=== PATIENT | female | born 1970 | race Caucasian/White ===

== ENCOUNTER 2020-05-03 22:42 | Inpatient (IN) | payer OTHER, SELFPAY ==
--- NOTE | ~2020-05-03 | XR_ITS ---
EXAMINATION: XR chest 1V portable DATE: 05/03/2020 23:39 INDICATION: Shortness of breath. COVID-19 positive. TECHNIQUE: A single frontal view of the chest was obtained. COMPARISON: None. FINDINGS: There are patchy airspace opacities in the mid and lower lung zones. No pleural effusion or pneumothorax. The heart size is normal. IMPRESSION: 1. Patchy airspace opacities in the mid and lower lung zones, consistent with pneumonia. Reviewed, dictated and finalized at location A. OGENATION OPERATOR IMPRESSION: 1. Patchy airspace opacities in the mid and lower lung zones, consistent with p neumonia.
--- NOTE | 2020-05-03 22:51 | ED.SOB ---
HPI - SOB/Dyspnea General Chief Complaint: Shortness of Breath/Dyspnea Stated Complaint: covid + / difficulty breathing/fever Time Seen by Provider: 05/03/20 22:51 Source: patient Mode of arrival: ambulatory Limitations: no limitations History of Present Illness HPI Narrative: Patient is a 49-year-old female who presents for evaluation of recurrent fever, cough and shortness of breath. Patient with progressively worsening shortness of breath, cough since diagnosed with Covid on April 29. Patient with initial fever on April 25, tested for Covid on April 26, with positive test result called to her by the public health department on April 29. Patient reports rhinorrhea, congestion, dry cough, and worsening shortness of breath. Patient states she feels she is unable to take a deep breath. Her breathing rate became very fast this evening thus prompting her to come to the emergency department to seek care. She reports recurrent fever despite scheduled Tylenol and ibuprofen, as well as myalgias and headache. She denies any current chest pain. She states that she believes she contracted Covid from her boyfriend who may have been an asymptomatic carrier. Patient follows with Dr. Glasgow who had called her in azithromycin, patient has taken 2 doses of that without any improvement in her symptoms. Related Data Home Medications Medication Instructions Recorded Confirmed No Home Medications 05/03/20 05/03/20 Allergies Allergy/AdvReac Type Severity Reaction Status Date / Time codeine Allergy Intermediate NAUSEA Verified 05/03/20 23:14 Penicillins Allergy Intermediate RASH Verified 05/03/20 23:14 Review of Systems Review of Systems: Narrative: CONSTITUTIONAL: Reports fever and chills EYES: Denies visual changes, redness, or discharge. ENT: Reports rhinorrhea and congestion CARDIOVASCULAR: Denies chest pain, palpitations, or edema. RESPIRATORY: Reports dry cough and shortness of breath GASTROINTESTINAL: Denies abdominal pain, nausea, vomiting, or diarrhea. GENITOURINARY: Denies dysuria or hematuria. SKIN: Denies rash or itching. MUSCULOSKELETAL: Reports myalgias NEUROLOGIC: Reports headache PSYCHIATRIC: Denies anxiety or depression. [facility] Past Medical History Medical History Abnormal uterine bleeding Anemia Fibroids Skin cancer Surgical History Surgical History H/O thyroidectomy Hx of cholecystectomy Social History Social History (Updated 05/03/20 @ 23:22 by Jeanna Soto MD) Smoking status: Never smoker Substance use: never Living arrangements: with family Gender identity (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 by the patient): Female Exam Narrative: Exam Narrative: GENERAL: Awake, alert, conversant HEAD: Normocephalic, atraumatic. EYES: PERRLA and EOMI. ENT: Nares clear, no rhinorrhea or epistaxis. Mucous membranes moist. NECK: Supple. CHEST: Tachypneic, increased work of breathing, use of abdominal accessory muscles to breathe HEART: Tachycardic rate, sinus rhythm ABDOMEN:Non distended, non tender EXTREMITIES: Normal range of motion. No edema. SKIN: Warm, dry, no rash. NEURO:No focal deficits. Alert and oriented x3 Course Vital Signs Vital signs: Vital Signs Temperature 38.3 C H 05/03/20 22:52 Pulse Rate 101 H 05/03/20 22:52 Respiratory Rate 33 H 05/03/20 22:52 Blood Pressure 113/74 05/03/20 22:52 Pulse Oximetry 95 05/03/20 22:52 Temperature 38.3 C H 05/03/20 22:52 Pulse Rate 101 H 05/03/20 22:52 Respiratory Rate 33 H 05/03/20 22:52 Blood Pressure 113/74 05/03/20 22:52 Pulse Oximetry 95 05/03/20 22:52 MDM - SOB/Dyspnea MDM Narrative Medical decision making narrative: Patient presented for evaluation of shortness of breath in the setting of a recent positive Covid test. The time of assessment, patient is tachycardic, tachypneic and febrile. Oxygen saturations are 9
[2020-05-03 22:52] VITALS: BP 113/74; PULSE 101; RESP 33; TEMP 38.3; O2SAT 95
--- NOTE | 2020-05-03 23:00 | ECG_ITS ---
Measurements Intervals Aldie Rate: 99 P: 46 GA: 139 QRS: 40 QRSD: 96 T: 26 QT: 344 QTc: 442 Interpretive Statements SINUS RHYTHM LOW QRS VOLTAGE IN PRECORDIAL LEADS BORDERLINE ST-T WAVE ABNORMALITY- ANT/INF LEADS BASELINE WANDER- V1-V4 BORDERLINE ECG Electronically Signed On 05-04-2020 13:15:07 DIRECTOR PUBLIC POLICY by [place] D.O.
[2020-05-03] MEDS: SODIUM CHLORIDE 0.9% IV 500 ML 999 ML IV CONT (23:10)
[2020-05-03 23:16] LABS: Basophils Percent Auto 0.4 % (0.2-1.2); Hematocrit 33.1 % (37.0-47.0); Hemoglobin 11.7 g/dL (12.0-15.0); Immature Granulocyte Absolute 0.01 K/mm3 (0.00-0.031); Immature Granulocyte Percent A 0.4 % (0-0.5); Lymphocytes Absolute Auto 0.66 K/mm3 (0.9-3.2); Lymphocytes Percent Auto 25.5 % (18.3-44.2); Mean Corpuscular HGB Conc 35.3 g/dl (32-36); Mean Corpuscular Hemoglobin 29.1 pg (26-34); Mean Corpuscular Volume 82.3 fl (80-100); Mean Platelet Volume 9.7 fl (7.4-10.4); Monocytes Absolute Auto 0.2 K/mm3 (0.1-0.6); Monocytes Percent Auto 6.2 % (2.6-8.5); Neutrophils Absolute Auto 1.8 K/mm3 (1.3-6.7); Neutrophils Percent Auto 67.5 % (45.5-73.1); Platelet Count Result 193 k/mm3 (150-375); Red Blood Count 4.02 M/mm3 (4.2-5.4); Red Cell Distribution Width 13.2 % (11.5-14.5); White Blood Count 2.6 K/mm3 (4.5-10.0)
[2020-05-03 23:17] LABS: Alveolar/Arterial O2 Gradient 52.4 mmHg; Base Excess ABG 3.7 mEq/l (+/-2.0); Carboxyhemoglobin 0.6 % THb (0-2.0); Fractional Inspired Oxygen 21 %; Methemoglobin ABG 0.1 %THb (0-1.5); Oxygen Content ABG 15.8 %vol (16.0-22.0); Oxygen Saturation ABG 93.4 % (95.0-100.0); Oxyhemoglobin 91.2 % THb (90.0-100.0); PO2 FiO2 Ratio Arterial Blood 2.81 %; Reduced Hemoglobin 8.1 %THb (0-5.0); Total Hemoglobin 12.3 g/dL (12.0-18.0)
[2020-05-03 23:22] LABS: pH ABG 7.528 (7.350-7.450)
[2020-05-03 23:23] LABS: Device ROOM AIR; Modified Allen's Test Pass; Site Drawn RIGHT RADIAL
[2020-05-03 23:27] LABS: Partial Thromboplastin Time 40.5 SECONDS (22.3-36.8)
[2020-05-03 23:30] LABS: Lactic Acid Reflex 1.1 mmol/L (0.7-2.1)
[2020-05-03 23:30] LABS: Lactate Dehydrogenase 992 U/L (313-618)
[2020-05-03 23:32] LABS: Alanine Aminotransferase 19 U/L (4-35); Albumin Level 3.4 g/dL (3.5-5.1); Alkaline Phosphatase 79 U/L (38-126); Anion Gap 7 mmol/L (8-16); Aspartate Amino Transferase 34 U/L (14-36); Bilirubin,Total 0.4 mg/dL (0.2-1.3); Blood Urea Nitrogen 16 mg/dL (7-17); Calcium 8.3 mg/dL (8.4-10.2); Carbon Dioxide 29 mmol/L (22-30); Chloride 100 mmol/L (98-107); Estimated CRCL calculation 107 ml/min; Estimated Glomerular Filt Rate > 60; Glucose 119 mg/dL (65-105); Potassium 3.4 mmol/L (3.4-5.0); Sodium 136 mmol/L (137-145)
[2020-05-03 23:41] LABS: Troponin I < 0.012 ng/mL (0.000-0.034)
--- NOTE | 2020-05-03 23:53 | PM.IMHP ---
H&P: HPI History of Present Illness Date/Time: 05/03/20 23:53 Chief complaint: COVID 19, hypoxic respiratory failure Narrative: Mela Gomez is a 49 year old female with no past medical history with diagnosis COVID-19 presents to the ED with complaints of dyspnea. She thinks her exposure was her boyfriend who was asymptomatic. She had fever on 04/25/2020, COVID test on 04/26/2020 and was told that she was positive. She complains of fevers, cough, body aches, chills. She tried to hold off at home and came to the hospital today for progressive dyspnea. she has cough with any deep breath. She had taken 2 doses of azithromycin prescribed by PCP Dr. Glasgow. In the ED: WBC 2.6, ABG was alkalotic and PO2 59 from tachypnea and put on 2 L of oxygen by nasal cannula to improve her respiration rate, inflammatory markers ferritin, LDH, C-reactive protein elevated. Chest x-ray bilateral opacities consistent with COVID-19. patient was given IV Decadron Patient made for observation COVID-19. Review of Systems Review of Systems: Narrative: Constitutional: Endorses fever, body aches, chills. ENT/Mouth: No Hearing Changes, No Ear Pain, No Nasal Congestion, No Sinus Pain, No Hoarseness, No sore throat, No Rhinorrhea, No Swallowing Difficulty Eyes: No Eye Pain, No Redness, No Vision Changes Cardiovascular: No Chest Pain, No Palpitations, No Dyspnea on Exertion, No Orthopnea, No Claudication, No Edema Respiratory: complains of dry cough, shortness of breath. Denies wheezing. Gastrointestinal: No Nausea, No Vomiting, No Diarrhea, No Constipation, No Abdominal Pain, No Heartburn, No Hematochezia, No Melena Genitourinary: No Dysuria, No Urinary Frequency, No Hematuria, No Urinary Incontinence, No Urgency Musculoskeletal: No Arthralgias, No Joint Swelling, No Joint Stiffness, No Back Pain Skin: No Skin Lesions, No Pruritis, No Hair Changes Neuro: No Weakness, No Numbness, No Paresthesias, No Loss of Consciousness, No Syncope, No Dizziness, No Headache Psych: No Anxiety/Panic, No Depression, No Insomnia Heme: No Bruising, No Bleeding Lymph: No Adenopathy Endocrine: No Polyuria, No Polydipsia, No Temperature Intolerance [facility] Past Medical History Medical History Abnormal uterine bleeding Anemia Fibroids Skin cancer Surgical History Surgical History H/O thyroidectomy Hx of cholecystectomy Family History Family History Father COPD (chronic obstructive pulmonary disease) Mother Heart attack Social History Social History (Updated 05/04/20 @ 01:20 by Areli Browne DO) Smoking status: Never smoker Alcohol intake: never Substance use: never Living arrangements: with family Occupation/Education: occupation 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 (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 by the patient): Female Spiritual care concerns: No Meds Home Medications and Allergies Home Medications Medication Instructions Recorded Confirmed Type No Home Medications 05/03/20 05/03/20 History Allergies Allergy/AdvReac Type Severity Reaction Status Date / Time codeine Allergy Intermediate NAUSEA Verified 05/03/20 23:14 Penicillins Allergy Intermediate RASH Verified 05/03/20 23:14 Vital Signs Vital Signs - 24 hr 05/03/20 22:52 Temperature 38.3 C H Pulse Rate 101 H Respiratory Rate 33 H Blood Pressure 113/74 Pulse Oximetry 95 Exam Narrative: Exam Narrative: - GENERAL: pleasant woman in no acute distress breathing comfortably 2 L. - EYES: EOMI. Anicteric. - HENT: Moist mucous membranes. No scleral icterus. - LUNGS: clear in apices, diminished lung sounds at lung bases - CARDIOVASCULAR: Regular rate and rhythm. No murmur. No JVD. - ABDOMEN: Soft, non-tender and non-distended. No palpable
[2020-05-04] VITALS (16 sets, daily range): BP systolic 97–126; BP diastolic 60–82; PULSE 75–113; RESP 18–22; TEMP 36.4–39.3; O2SAT 95–100; BMI 28.6
[2020-05-04 00:13] LABS: CRP 15.1 mg/dL (<1.0)
--- NOTE | 2020-05-04 00:44 | ADMGEN ---
This patient, Mela Gomez, was admitted to 3 [facility] Surg Room 319-01. Patient/family oriented to hospital policies and general routines including ID bracelet, bed and alarms, visiting hours, pain management, procedures, bathroom and other care routines, personal items, smoking policy, room service/diet, and visiting hours. Information on how to activate the Rapid Response Team has been discussed. Patient/Family are encouraged to report perceived risks to care and to ask questions if they do not understand what they are told or what they should do.
[2020-05-04] MEDS: ONDANSETRON INJ 4 MG/2 ML VIAL IV PUSH ×2 (00:57→21:11)
[2020-05-04] MEDS: guaiFENesin/DEXTROMETHORPHAN 10 ML UDC PO ×3 (02:22→21:06)
[2020-05-04] MEDS: ZINC SULFATE 220 MG CAPSULE PO (08:21)
[2020-05-04] MEDS: ENOXAPARIN 40 MG/0.4 ML SYRINGE SUB-Q ×2 (08:21→21:05)
[2020-05-04] MEDS: ASPIRIN 81 MG CHEWABLE TABLET PO (08:21)
[2020-05-04] MEDS: FAMOTIDINE 20 MG TABLET PO ×2 (08:21→21:05)
[2020-05-04] MEDS: DEXAMETHASONE 2 MG TABLET 6 MG PO (08:21)
[2020-05-04] MEDS: CHOLECALCIFEROL 1,000 UNITS TABLET 1000 UNITS PO (08:21)
[2020-05-04] MEDS: ASCORBIC ACID 500 MG TABLET PO (08:21)
[2020-05-04] MEDS: ALBUTEROL SULFATE (*SP) AEROSOL 1 PUFF 2 PUFF INHALATION ×2 (10:16→15:15)
--- NOTE | 2020-05-04 13:46 | PM.IMPN ---
Progress Note: A&P Assessment and Plan (1) COVID-19: Code(s): U07.1 - COVID-19 Status: Acute Assessment and Plan: Patient tested positive for COVID on 04/26, presents with worsening shortness of breath. Symptoms began 04/25, known exposure to COVID + person. Continue dexamethasone (day 2); discussed with patient, will initiate remdesivir today (day 1). Continue supplemental O2 and wean as tolerated to keep O2 saturations > 90%. Continue supportive care with Tylenol for fever, albuterol MDI, Robitussin, incentive spirometer, supplementation of Zinc, vitamins C and D. (2) Respiratory failure with hypoxia: Qualifiers: Chronicity: acute Qualified Code(s): J96.01 - Acute respiratory failure with hypoxia Code(s): J96.91 - Respiratory failure, unspecified with hypoxia Status: Acute Assessment and Plan: Secondary to above. Subjective Date/time seen: 05/04/20 13:00 Interval history: Ms. Gomez is a pleasant 49yo F admitted for acute respiratory failure secondary to COVID-19. Still has significant nonproductive coughing today. She denies chest pain. She has been doing well working with her incentive spirometer and ambulating in the room which she admits makes her feel a bit short of breath. Shortness of breath overall feels about the same as yesterday. She reports her appetite is decreased but she has tolerated some breakfast without nausea or vomiting. Review of Systems Review of Systems: All systems reviewed & are unremarkable except as noted in HPI and below Exam Narrative: Exam Narrative: General: Female resting sitting up in bed in no acute respiratory distress. HEENT: Normocephalic, EOMI, oral mucosa moist. Cardiovascular: Rate and rhythm are regular. Respiratory: Decreased breath sounds YANIQUE. Respirations are even and nonlabored. Tolerating 1L O2 nasal cannula at time of my encounter. Deep breaths elicit dry coughing. Abdomen: Soft, non-tender, non-distended, bowel sounds present. Extremities: Peripheral pulses intact. No edema. Neuro: No focal neurological deficits. Speech is clear. Objective Data Vital Signs Vital Signs: Last Vital Signs Temp 100 F H 05/04/20 16:00 Pulse 113 H 05/04/20 16:00 Resp 20 05/04/20 16:00 BP 117/60 05/04/20 16:00 Pulse Ox 96 05/04/20 16:00 Intake/Output Intake/Output: Intake & Output 05/01/20 05/02/20 05/03/20 05/04/20 23:59 23:59 23:59 23:59 Intake Total 600 340 Output Total 300 Balance 600 40 Meds/Results Medications: Active Medications Generic Name Dose Route Start Last Admin Trade Name Freq PRN Reason Stop Dose Admin Acetaminophen 650 mg 05/03/20 23:49 Acetaminophen 325 Mg Tablet PO Q4H PRN Mild Pain (1-3) or Fever Albuterol 2 puff 05/04/20 08:00 05/04/20 10:16 Albuterol Sulfate (*Sp) Aerosol 1 Puff INHALATION 2 puff QIDRT JOHN Administration Ascorbic Acid 500 mg 05/04/20 09:00 05/04/20 08:21 Ascorbic Acid 500 Mg Tablet PO 500 mg DAILY JOHN Administration Aspirin 81 mg 05/04/20 08:00 05/04/20 08:21 Aspirin 81 Mg Chewable Tablet PO 81 mg DAILY@0800 JOHN Administration Dexamethasone 6 mg 05/04/20 08:00 05/04/20 08:21 Dexamethasone 2 Mg Tablet PO 05/13/20 08:01 6 mg DAILY@0800 JOHN Administration Enoxaparin Sodium 40 mg 05/04/20 09:00 05/04/20 08:21 Enoxaparin 40 Mg/0.4 Ml Syringe SUB-Q 40 mg Q12HR JOHN Administration Famotidine 20 mg 05/04/20 09:00 05/04/20 08:21 Famotidine 20 Mg Tablet PO 20 mg Q12HR JOHN Administration Guaifenesin/Dextromethorphan 10 ml 05/04/20 01:26 05/04/20 08:24 Guaifenesin/Dextromethorphan 10 Ml Udc PO 10 ml Q4H PRN Administration Cough Ondansetron HCl 4 mg 05/03/20 23:49 05/04/20 00:57 Ondansetron Inj 4 Mg/2 Ml Vial IV PUSH 4 mg Q4H PRN Administration Nausea Tabby
[2020-05-04] MEDS: REMDESIVIR 200 MG/NS 250 ML 200 MG/250 ML BAG 250 MG IVPB (15:07)
[2020-05-04] MEDS: ACETAMINOPHEN 325 MG TABLET 650 MG PO ×2 (15:17→21:19)
[2020-05-04] MEDS: ALBUTEROL SULFATE (*SP) INHALER 1 PUFF (20:27)
[2020-05-05] VITALS (19 sets, daily range): BP systolic 91–115; BP diastolic 54–68; PULSE 81–102; RESP 16–20; TEMP 36.4–38.4; O2SAT 93–97
[2020-05-05] MEDS: ACETAMINOPHEN 325 MG TABLET 650 MG PO ×3 (02:54→20:20)
[2020-05-05] MEDS: guaiFENesin/DEXTROMETHORPHAN 10 ML UDC PO ×5 (02:54→21:53)
[2020-05-05] MEDS: IBUPROFEN 600 MG TABLET PO (06:04)
[2020-05-05 06:47] LABS: Hematocrit 31.3 % (37.0-47.0); Hemoglobin 10.7 g/dL (12.0-15.0); Mean Corpuscular HGB Conc 34.2 g/dl (32-36); Mean Corpuscular Hemoglobin 28.8 pg (26-34); Mean Corpuscular Volume 84.1 fl (80-100); Mean Platelet Volume 9.4 fl (7.4-10.4); Platelet Count Result 219 k/mm3 (150-375); Red Blood Count 3.72 M/mm3 (4.2-5.4); Red Cell Distribution Width 13.3 % (11.5-14.5); White Blood Count 4.4 K/mm3 (4.5-10.0)
[2020-05-05 07:13] LABS: Anion Gap 6 mmol/L (8-16); Blood Urea Nitrogen 14 mg/dL (7-17); Calcium 7.8 mg/dL (8.4-10.2); Carbon Dioxide 29 mmol/L (22-30); Chloride 102 mmol/L (98-107); Estimated CRCL calculation 108 ml/min; Estimated Glomerular Filt Rate > 60; Glucose 106 mg/dL (65-105); Potassium 3.4 mmol/L (3.4-5.0); Sodium 137 mmol/L (137-145)
[2020-05-05] MEDS: ALBUTEROL SULFATE (*SP) AEROSOL 1 PUFF 2 PUFF INHALATION ×4 (08:14→20:23)
[2020-05-05 08:41] LABS: Alanine Aminotransferase 18 U/L (4-35)
[2020-05-05] MEDS: ASCORBIC ACID 500 MG TABLET PO (09:27)
[2020-05-05] MEDS: DEXAMETHASONE 2 MG TABLET 6 MG PO (09:27)
[2020-05-05] MEDS: FAMOTIDINE 20 MG TABLET PO ×2 (09:27→20:11)
[2020-05-05] MEDS: CHOLECALCIFEROL 1,000 UNITS TABLET 1000 UNITS PO (09:28)
[2020-05-05] MEDS: ENOXAPARIN 40 MG/0.4 ML SYRINGE SUB-Q ×2 (09:28→20:11)
[2020-05-05] MEDS: ASPIRIN 81 MG CHEWABLE TABLET PO (09:28)
[2020-05-05] MEDS: ZINC SULFATE 220 MG CAPSULE PO (09:28)
[2020-05-05] MEDS: BISACODYL 5 MG TABLET EC PO (13:53)
--- NOTE | 2020-05-05 14:10 | PM.IMPN ---
Progress Note: A&P Assessment and Plan (1) COVID-19: Code(s): U07.1 - COVID-19 Status: Acute Assessment and Plan: Patient tested positive for COVID on 04/26, presents with worsening shortness of breath. Symptoms began 04/25, known exposure to COVID + person. Continue dexamethasone (day 3), remdesivir (day 2). Off oxygen this morning. Continue supportive care with Tylenol for fever, albuterol MDI, Robitussin, incentive spirometer, supplementation of Zinc, vitamins C and D. Continue to monitor; Anticipate possible discharge tomorrow if still off oxygen. (2) Respiratory failure with hypoxia: Qualifiers: Chronicity: acute Qualified Code(s): J96.01 - Acute respiratory failure with hypoxia Code(s): J96.91 - Respiratory failure, unspecified with hypoxia Status: Acute Assessment and Plan: Secondary to above. Subjective Date/time seen: 05/05/20 1245 Interval history: Ms. Gomez is a pleasant 49yo F admitted for acute respiratory failure secondary to COVID-19. Still with a significant cough today. Febrile overnight and this morning. She is very tired today, more so than yesterday. Appetite is poor but she has tolerated a little oral intake without nausea or vomiting. Her taste and smell is returning a little today. Off oxygen since this morning. Review of Systems Review of Systems: All systems reviewed & are unremarkable except as noted in HPI and below Exam Narrative: Exam Narrative: General: Female resting supine in bed in no acute respiratory distress. HEENT: Normocephalic, EOMI, oral mucosa moist. Cardiovascular: Rate and rhythm are regular. Respiratory: Decreased breath sounds YANIQUE. Respirations are even and nonlabored. Tolerating room air at time of my encounter. Deep breaths elicit dry coughing. Abdomen: Soft, non-tender, non-distended, bowel sounds present. Extremities: Peripheral pulses intact. No edema. Negative Romy's sign. Neuro: No focal neurological deficits. Speech is clear. Objective Data Vital Signs Vital Signs: Last Vital Signs Temp 99.0 F 05/05/20 13:07 Pulse 102 H 05/05/20 12:00 Resp 18 05/05/20 12:00 BP 111/62 05/05/20 12:00 Pulse Ox 93 05/05/20 12:00 Intake/Output Intake/Output: Intake & Output 05/02/20 05/03/20 05/04/20 05/05/20 23:59 23:59 23:59 23:59 Intake Total 600 1830 1370 Output Total 1200 Balance 617 409 2225 Meds/Results Medications: Active Medications Generic Name Dose Route Start Last Admin Trade Name Freq PRN Reason Stop Dose Admin Acetaminophen 650 mg 05/03/20 23:49 05/05/20 12:07 Acetaminophen 325 Mg Tablet PO 650 mg Q4H PRN Administration Mild Pain (1-3) or Fever Albuterol 2 puff 05/04/20 08:00 05/05/20 12:57 Albuterol Sulfate (*Sp) Aerosol 1 Puff INHALATION 2 puff QIDRT JOHN Administration Ascorbic Acid 500 mg 05/04/20 09:00 05/05/20 09:27 Ascorbic Acid 500 Mg Tablet PO 500 mg DAILY JOHN Administration Aspirin 81 mg 05/04/20 08:00 05/05/20 09:28 Aspirin 81 Mg Chewable Tablet PO 81 mg DAILY@0800 JOHN Administration Bisacodyl 5 mg 05/05/20 10:41 05/05/20 13:53 Bisacodyl 5 Mg Tablet Ec PO 5 mg QAM PRN Administration Constipation Dexamethasone 6 mg 05/04/20 08:00 05/05/20 09:27 Dexamethasone 2 Mg Tablet PO 05/13/20 08:01 6 mg DAILY@0800 JOHN Administration Enoxaparin Sodium 40 mg 05/04/20 09:00 05/05/20 09:28 Enoxaparin 40 Mg/0.4 Ml Syringe SUB-Q 40 mg Q12HR JOHN Administration Famotidine 20 mg 05/04/20 09:00 05/05/20 09:27 Famotidine 20 Mg Tablet PO 20 mg Q12HR JOHN Administration Guaifenesin/Dextromethorphan 10 ml 05/04/20 01:26 05/05/20 13:53 Guaifenesin/Dextromethorphan 10 Ml Udc PO 10 ml Q4H PRN Administration Cough Remdesivir 100 mg in 250 mls @ 250 mls/hr 05/05/20 15:00 IVPB
[2020-05-05] MEDS: REMDESIVIR 100 MG/NS 250 ML 100 MG/250 ML BAG 250 MG IVPB (14:52)
[2020-05-06] VITALS (7 sets, daily range): BP systolic 99–117; BP diastolic 62–75; PULSE 85–94; RESP 18; TEMP 36.7–38.3; O2SAT 91–97
[2020-05-06] MEDS: ACETAMINOPHEN 325 MG TABLET 650 MG PO (04:16)
[2020-05-06 06:43] LABS: Basophils Percent Auto 0.3 % (0.2-1.2); Hematocrit 32.1 % (37.0-47.0); Immature Granulocyte Absolute 0.04 K/mm3 (0.00-0.031); Immature Granulocyte Percent A 1.1 % (0-0.5); Lymphocytes Absolute Auto 0.98 K/mm3 (0.9-3.2); Lymphocytes Percent Auto 26.8 % (18.3-44.2); Mean Corpuscular HGB Conc 34.3 g/dl (32-36); Mean Corpuscular Hemoglobin 28.9 pg (26-34); Mean Corpuscular Volume 84.3 fl (80-100); Mean Platelet Volume 9.2 fl (7.4-10.4); Monocytes Absolute Auto 0.4 K/mm3 (0.1-0.6); Monocytes Percent Auto 11.8 % (2.6-8.5); Neutrophils Absolute Auto 2.2 K/mm3 (1.3-6.7); Platelet Count Result 243 k/mm3 (150-375); Red Blood Count 3.81 M/mm3 (4.2-5.4); Red Cell Distribution Width 13.4 % (11.5-14.5); White Blood Count 3.7 K/mm3 (4.5-10.0)
[2020-05-06 06:56] LABS: Alanine Aminotransferase 21 U/L (4-35); Albumin Level 3.1 g/dL (3.5-5.1); Alkaline Phosphatase 64 U/L (38-126); Anion Gap 6 mmol/L (8-16); Aspartate Amino Transferase 38 U/L (14-36); Bilirubin,Total 0.4 mg/dL (0.2-1.3); Blood Urea Nitrogen 13 mg/dL (7-17); Calcium 7.8 mg/dL (8.4-10.2); Carbon Dioxide 31 mmol/L (22-30); Chloride 101 mmol/L (98-107); Estimated CRCL calculation 108 ml/min; Estimated Glomerular Filt Rate > 60; Glucose 107 mg/dL (65-105); Lactate Dehydrogenase 1032 U/L (313-618); Magnesium 2.2 mg/dL (1.6-2.3); Potassium 3.8 mmol/L (3.4-5.0); Sodium 138 mmol/L (137-145)
[2020-05-06 07:09] LABS: CRP 13.6 mg/dL (<1.0)
[2020-05-06] MEDS: ALBUTEROL SULFATE (*SP) AEROSOL 1 PUFF 2 PUFF INHALATION ×3 (07:21→16:05)
[2020-05-06 08:05] LABS: Atypical Lymphocytes Present; Hypochromasia 1+ (NORMAL); Microcytosis 1+ (NORMAL); Platelet Estimate Adequate (Adequate)
[2020-05-06] MEDS: guaiFENesin/DEXTROMETHORPHAN 10 ML UDC PO (08:08)
[2020-05-06] MEDS: DEXAMETHASONE 2 MG TABLET 6 MG PO (08:08)
[2020-05-06] MEDS: ZINC SULFATE 220 MG CAPSULE PO (08:09)
[2020-05-06] MEDS: ENOXAPARIN 40 MG/0.4 ML SYRINGE SUB-Q (08:09)
[2020-05-06] MEDS: FAMOTIDINE 20 MG TABLET PO (08:09)
[2020-05-06] MEDS: ASCORBIC ACID 500 MG TABLET PO (08:09)
[2020-05-06] MEDS: ASPIRIN 81 MG CHEWABLE TABLET PO (08:09)
[2020-05-06] MEDS: CHOLECALCIFEROL 1,000 UNITS TABLET 1000 UNITS PO (08:10)
--- NOTE | 2020-05-06 13:24 | PM.DS ---
DS: Admitting Diagnosis Admitting Diagnosis Admitting Diagnosis: COVID 19, hypoxic respiratory failure DS: Discharge Diagnosis Discharge Diagnosis (1) COVID-19: Code(s): U07.1 - COVID-19 Status: Acute Assessment and Plan: Date of Admission 05/03/20 Date of Discharge/DOS 05/06/20 Ms. Gomez is a pleasant 49yo healthy female who tested positive for COVID-19 on 04/26/20 after symptoms of fevers started 04/25/20. She presented to the ED for evaluation of significant shortness of breath and was found to be in acute respiratory failure with hypoxia. Chest XR demonstrated bilateral pneumonia. She was initiated on steroids and antiviral therapy. She was treated with supplemental oxygen and 4 days of dexamethasone and 3 days of remdesivir. Her symptoms improved and she was able to maintain adequate oxygen saturations on room air x24 hrs prior to discharge. She was hemodynamically stable for discharge on 05/06/20 with instructions to monitor her symptoms closely and follow up with PCP for phone visit within 1 week. Patient tested positive for COVID on 04/26, presents with worsening shortness of breath. Symptoms began 04/25, known exposure to COVID + person. Treated with dexamethasone (day 4), remdesivir (day 3). Tolerating room air prior to discharge. Continue supportive care with Tylenol for fever, albuterol MDI, Robitussin, incentive spirometer, supplementation of Zinc, vitamins C and D. (2) Respiratory failure with hypoxia: Qualifiers: Chronicity: acute Qualified Code(s): J96.01 - Acute respiratory failure with hypoxia Code(s): J96.91 - Respiratory failure, unspecified with hypoxia Status: Acute Assessment and Plan: Secondary to above. DS: Summary Time Spent with Patient Time attestation: Total time spent providing and/or coordinating discharge services: 45 minutes Exam Narrative: Exam Narrative: General: Female resting supine in bed in no acute respiratory distress. HEENT: Normocephalic, EOMI, oral mucosa moist. Cardiovascular: Rate and rhythm are regular. Respiratory: Decreased breath sounds YANIQUE. Respirations are even and nonlabored. Tolerating room air at time of my encounter. Deep breaths elicit dry coughing. Abdomen: Soft, non-tender, non-distended, bowel sounds present. Extremities: Peripheral pulses intact. No edema. Negative Romy's sign. Neuro: No focal neurological deficits. Speech is clear. DS: Data Data Completed and Pending Labs on day of discharge: Last Vital Signs Temp 98.2 F 05/06/20 12:00 Pulse 91 05/06/20 12:00 Resp 18 05/06/20 12:00 BP 110/75 05/06/20 12:00 Pulse Ox 93 05/06/20 12:00 ITS Impressions Chest X-Ray 05/03/20 23:41 IMPRESSION: 1. Patchy airspace opacities in the mid and lower lung zones, consistent with pneumonia. Laboratory Tests 05/06/20 06:25 05/06/20 06:25 Discharge Plan Discharge Attending physician on discharge: Moises Hollis Consulting providers: Marlene Ludwig ; [place] ; Greg Mcclain V. Discharging Clinician: Marlene Ludwig Anticipated Discharge Date/Time: 05/06/20 16:00 Patient Disposition: Home, Self-Care Activity: as tolerated Diet: as tolerated Discharge Instructions: Keep your scheduled follow-up virtual appointment with Dr Glasgow for Saturday05/10/20. It is important for you to stay isolated at home. You can leave home after these three things have happened: You have had no fever for at least 72 hours (that is three full days of no fever without the use medicine that reduces fevers) AND other symptoms have improved (for example, when your cough or shortness of breath have improved) AND at least 14 days have passed since your symptoms first appeared Your family members at home will benefit from you also stayin
[2020-05-06] MEDS: REMDESIVIR 100 MG/NS 250 ML 100 MG/250 ML BAG 250 MG IVPB (15:11)
== END 2020-05-06 16:45 | disposition home or self-care (01) | DRG 177 ==
LOC: ANHED 23:45 → ANH3MEDSUR 05-04 00:03
PROVIDERS: Physician Assistant; Admitting Provider Student in an Organized Health Care Education/Training Program; Emergency Provider Emergency Medicine; PCP Internal Medicine; Visit Provider Hospitalist
DX: U07.1 COVID-19 (principal); J96.01 Acute respiratory failure with hypoxia; J12.89 Other viral pneumonia; Z88.0 Allergy status to penicillin; Z88.8 Allergy status to other drugs, medicaments and biological substances
CPT/HCPCS: 36415; 36600; 71045; 80048; 80053; 82375; 82728; 82805; 83050; 83605; 83615; 83735; 84460; 84484; 85025; 85027; 85610; 85730; 86140; 87040; 93005; 94640; 96365; 96372; 96375; 99285; A9270; G0378; J0131; J1100; J1650; J2405; J7040; J8540

== ENCOUNTER 2020-09-06 09:04 | Outpatient (CLI) | payer OTHER, SELFPAY | END 2020-09-06 09:05 | disposition home or self-care (01) | LOC: ANHCOVIDVC 09:04 | PROVIDERS: PCP Internal Medicine | DX: Z23 Encounter for immunization (principal) | CPT/HCPCS: 0001A; 91300 ==

== ENCOUNTER 2020-09-27 09:04 | Outpatient (CLI) | payer OTHER, SELFPAY | END 2020-09-27 09:05 | disposition home or self-care (01) | LOC: ANHCOVIDVC 09:04 | PROVIDERS: PCP Internal Medicine | DX: Z23 Encounter for immunization (principal) | CPT/HCPCS: 0002A; 91300 ==

== ENCOUNTER 2022-07-10 14:45 | Outpatient (CLI) | payer OTHER, SELFPAY ==
--- NOTE | ~2022-07-10 | MM_ITS ---
EXAMINATION: MM screening natacha BI w shirlene HISTORY: Screening mammogram TECHNIQUE: Craniocaudal and mediolateral oblique 3-D tomosynthesis images were obtained and synthetic 2-D images were generated. CAD analysis was submitted and interpreted. COMPARISON: 03/20/2018 bilateral screening mammogram examination BREAST PARENCHYMAL COMPOSITION: The breasts are heterogeneously dense, which may obscure small masses . FINDINGS: There is no evidence of suspicious mass, calcification, or architectural distortion to sugg est malignancy in either breast. There has been no suspicious interval change. IMPRESSION: 1. No mammographic evidence of malignancy. 2. Recommend routine screening mammography in one year. BI-RADS Category 1: Negative Reviewed, dictated and finalized at location A. UTER NUMERICAL CONTROL MACHINIST
== END 2022-07-10 14:46 | disposition home or self-care (01) ==
PROVIDERS: PCP Internal Medicine; Visit Provider Obstetrics & Gynecology
DX: Z12.31 Encounter for screening mammogram for malignant neoplasm of breast (principal)
CPT/HCPCS: 77063; 77067

== ENCOUNTER 2022-10-12 09:49 | Outpatient (CLI) | payer OTHER, SELFPAY ==
--- NOTE | ~2022-10-12 | MR_ITS ---
EXAMINATION: MR breast BI wo/w con INDICATION: Family history of breast cancer TECHNIQUE: Axial VIBRANT pre and dynamic post contrast, Sagittal VIBRANT post contrast, Axial T2 STIR ASSET COMPARISON: None CONTRAST: Multihance, 18 cc BREAST COMPOSITION: Heterogeneous fibroglandular tissue FINDINGS: RIGHT BREAST: There is mild background parenchymal enhancement. No abnormal enhancement is present af ter contrast administration. No pathologically enlarged axillary or internal mammary lymph nodes are identified. A few small cysts of the breast measure up to 6 mm. LEFT BREAST: There is mild background parenchymal enhancement. No abnormal enhancement is present aft er contrast administration. No pathologically enlarged axillary or internal mammary lymph nodes are i dentified. Small cysts of the breast measure up to 6 mm. IMPRESSION: 1. Unremarkable breast MRI. BI-RADS Category 2: Benign finding(s). Reviewed, dictated and finalized at location A.
== END 2022-10-12 09:50 | disposition home or self-care (01) ==
PROVIDERS: PCP Internal Medicine; Visit Provider Internal Medicine
DX: Z12.39 Encounter for other screening for malignant neoplasm of breast (principal); Z80.3 Family history of malignant neoplasm of breast
CPT/HCPCS: 77049; A9577; C8908

== ENCOUNTER 2023-06-12 02:39 | Day surgery (SDC) | payer OTHER, SELFPAY ==
[2023-06-11 09:26] VITALS: BMI 27.6
--- NOTE | 2023-06-11 09:31 | PC.NURSE ---
Report to the Outpatient Waiting Room, entrance under the green pavilion located off [facility], at time 1245 on date 06/12/23. Planned Procedure Time: 1445. Time changes happen often and if your time is changed the preop area will call you the afternoon before. - You and your visitor will be asked to self-screen and do not enter if you have any COVID symptoms. - A mask is optional within the hospital at this time. Patients may have clear liquids (water, carbonated beverages, clear teas, apple juice) until 3 hours prior to surgery with a maximum of 20 ounces. - No food from midnight until time of surgery Take the following medications with a SIP of water the morning of surgery: NONE DO NOT STOP ANY OF YOUR OTHER PRESCRIPTION MEDICATIONS PRIOR TO SURGERY?EXCEPT THE FOLLOWING Medications to discontinue per physician: N/A Date to take last dose: N/A Please no make-up, nail chinese, hairspray, perfume, deodorant, or body powder the day of surgery. No jewelry (including any body piercings) or valuables the day of surgery, leave them at home. Please take a shower or bath the night before, or the morning of, surgery with an antibacterial soap. Wear comfortable, loose fitting clothing. - Jewelry must be removed prior to entering the operating room. Rings and piercings that are not removed may be cut off. - The hospital will not accept responsibility for valuables. - Please leave all valuables, including medications, at home the day of surgery. If you are going home after surgery, a licensed line haul driver must drive you home. - NO public transportation without another adult if you receive anesthesia. - We recommend that an adult stay with you for 24 hours following discharge. - We also recommend that you do not drive, make important decision, drink alcoholic beverages, or take any drugs that were not prescribed by your health care provider for at least 24 hours after your discharge time. Follow any additional instructions given to you from your surgeon. If you or anyone in your household have experienced Covid symptoms in the past week, please notify your surgeon or the nurse liaison at the phone number below for possible testing. Telephone instructions given to PT - [facility] and asked if any additional questions and then verbalized understanding. Patient advised to call surgeon office or pre surgery nurse liaison [phone] if any additional questions.
--- NOTE | 2023-06-11 15:44 | SUR.PREOP ---
patient contacted to arrive earlier than originally told now to come at 1045 for 1245 surgery
[2023-06-12 10:50] VITALS: BP 132/86; PULSE 88; RESP 20; TEMP 37.1; O2SAT 100
[2023-06-12] MEDS: ACETAMINOPHEN 500 MG TABLET 1000 MG PO (10:55)
[2023-06-12] MEDS: LACTATED RINGERS 1,000 ML 30 ML IV CONT ×2 (11:25→13:48)
--- NOTE | 2023-06-12 12:12 | P.PNAN_ITS ---
Anes - Initial Pre Proc Eval Procedure: Operation Date: 06/12/23 12:45 Proposed Procedures p Hysteroscopy Dilation and Curettage - Jake Galeana MD Date/Time: 06/12/23 12:12 Surgeon: Jake Galeana MD Pre Op Diagnosis: Marisabel Berger Patient Data Age: 52 Gender: F Height: 1.7 m Weight: 78.9 kg Last Vital Signs Temp 37.1 C 06/12/23 10:50 Pulse 88 06/12/23 10:50 Resp 20 06/12/23 10:50 BP 132/86 06/12/23 10:50 Pulse Ox 100 06/12/23 10:50 O2 Del Method Room Air 06/12/23 10:50 Allergies Allergy/AdvReac Type Severity Reaction Status Date / Time Penicillins Allergy Intermediate RASH Verified 06/12/23 10:51 codeine AdvReac Intermediate NAUSEA Verified 06/12/23 10:51 Home Medications Medication Instructions Recorded Confirmed Type ferrous sulfate 325 mg (65 mg 325 mg PO DAILY 06/11/23 06/12/23 History iron) tablet (Iron (ferrous sulfate)) loratadine 10 mg tablet (Claritin) 10 mg PO DAILY 06/11/23 06/12/23 History medroxyprogesterone 10 mg tablet 10 mg PO DAILY 06/11/23 06/12/23 History Patient hx anesthesia problems: none Family hx anesthesia problems: none Results Review: All pre-operative results and documents have been reviewed as part of the pre- operative evaluation. 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 Informed Consent: The patient's anesthetic plan and its attendant risks and benefits were discussed with the patient/family/POA. Questions were solicited and answers provided to the satisfaction of the patient/family/POA.
--- NOTE | 2023-06-12 12:17 | PM.IMHP ---
H&P: HPI History of Present Illness Date/Time: 06/12/23 12:17 Chief Complaint: Heavy bleeding Narrative: 52 y/o with irregular, heavy vaginal bleeding. She has had a tubal ligation and an endometrial ablation. Ultrasound exam shows a 2 cm thick endometrial complex. Review of Systems Review of Systems: All systems reviewed & are unremarkable except as noted in HPI and below PMFSH Past Medical History Medical History Abnormal uterine bleeding Anemia Fibroids Skin cancer Surgical History Surgical History H/O thyroidectomy History of bilateral tubal ligation History of endometrial ablation Hx of cholecystectomy Family History Family History Father COPD (chronic obstructive pulmonary disease) Mother Heart attack Social History Social History Smoking status: Never smoker Alcohol intake: current Alcohol use details: 1/MONTH Substance use: never Substance use type: does not use Living arrangements: with family Occupation/Education: occupation 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 (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 by the patient): Female Spiritual care concerns: No Meds Home Medications and Allergies Home Medications Medication Instructions Recorded Confirmed Type ferrous sulfate 325 mg (65 mg 325 mg PO DAILY 06/11/23 06/12/23 History iron) tablet (Iron (ferrous sulfate)) loratadine 10 mg tablet (Claritin) 10 mg PO DAILY 06/11/23 06/12/23 History medroxyprogesterone 10 mg tablet 10 mg PO DAILY 06/11/23 06/12/23 History Allergies Allergy/AdvReac Type Severity Reaction Status Date / Time Penicillins Allergy Intermediate RASH Verified 06/12/23 10:51 codeine AdvReac Intermediate NAUSEA Verified 06/12/23 10:51 Vital Signs Vital Signs - 24 hr 06/12/23 10:50 Temperature 37.1 C Pulse Rate 88 Respiratory Rate 20 Blood Pressure 132/86 Pulse Oximetry 100 Oxygen Delivery Room Air Exam Const: Orientation/consciousness: patient oriented x3 Other: Well-developed, well-nourished female in no acute distress. Neck: Thyroid: thyroid normal Lymphatic: no lymphadenopathy noted (in neck, axilla or inguinal nodes) Resp: Effort & Inspection: normal respiratory effort Auscultation: clear to auscultation bilaterally Cardio: Rate: regular rate Rhythm: regular rhythm Heart sounds: S1 normal heart sound present and S2 normal heart sound present GI: Other: ABD: Soft, nontender, nondistended. No guarding or rebound tenderness. No hepatosplenomegaly. : General: Yes no CVA tenderness Other: External genitalia: normal female hair distribution, without lesion. Urethral meatus: no lesion, non prolapsed. Bladder: no mass, nontender Vagina: well-estrogenized, without lesion or discharge. No cystocele or rectocele. Dark blood noted. Cervix: no lesion or discharge. Uterus: small, anteverted, freely mobile, nontender Adnexa: no mass or tenderness. Anus/perineum: no lesions, nontender Back/Spine/Pelvis: Back: no CVA tenderness Skin: General skin exam: normal color and no rashes or lesions noted Neuro: General: patient oriented x3 Extrem: Other: Extremities: nontender with no edema Psych: Mental Status: mental status grossly normal Affect: normal affect Assessment and Plan Assessment and plan (1) Menometrorrhagia: Code(s): N92.1 - Excessive and frequent menstruation with irregular cycle Status: Acute Assessment and Plan: A: Heavy vaginal bleeding with a thickened endometrial complex. P: Offered hysteroscopy with dilation and sharp curettage. She understands risks of surgery to include risks of anesthesia, risks of pain, infection, bleeding, blood products, thromboembol
--- NOTE | 2023-06-12 12:50 | WPDHPUPDATE1 ---
History and Physical Update Update Date/Time: 06/12/23 12:50 History and Physical has been reviewed, including an updated exam of the patient. There are NO changes in the patient's condition. Risks, benefits, and alternatives have been discussed and questions answered. Patient agrees to proceed with procedure.
[2023-06-12] MEDS: LIDOCAINE HCL 1% LOCAL INJ 10 ML VIAL INFILTRATE (13:24)
[2023-06-12 13:48] VITALS: BP 112/69; PULSE 75; RESP 14; O2SAT 100
--- NOTE | 2023-06-12 13:49 | W.PM.PROC2 ---
Procedure Note - Detailed Date of Procedure 06/12/23 Pre-op Diagnosis Menometrorrhagia Post-op Diagnosis Same Procedure Performed Hysteroscopy Dilation and sharp curettage Surgeon Jake Galeana MD Anesthesia MAC and Local (1% lidocaine) Findings The endometrial cavity was partially obscured by scarring, presumably from prior endometrial ablation. Tubal ostia were not seen. Thick polypoid tissue on the posterior surface of the endometrium. Description of Procedure The patient was taken to the operating room where she was prepared and draped in the usual sterile fashion in the dorsal lithotomy position. The bladder was drained with a red rubber catheter. A sterile speculum was placed into the vagina. The anterior lip of the cervix was grasped with single-tooth tenaculum. Ten mL of 1% lidocaine was administered in a paracervical block. The cervix was then gently dilated using Hegar dilators until a 7 mm dilator could be passed. The 5.7 mm Aveta hysteroscope was advanced and hysteroscopy was performed using sterile saline as a distention medium. Findings are as noted above. The FlexBlade was advanced and the polyp-like tissue was sharply excised and collected to be sent to pathology. Complete excision of the abnormal tissue was confirmed. Hemostasis was excellent. Sponge, lap, needle and instrument counts were correct. The patient was awakened and taken to the recovery room in stable condition. I was present and scrubbed through the entire procedure. Implants None Estimated Blood Loss 5 Drains No Packing No Pathology Yes (Endometrial curettings) Complications None Condition Stable Disposition PACU
[2023-06-12 14:15] VITALS: BP 126/75; PULSE 66; RESP 16; O2SAT 100
[2023-06-12 14:45] VITALS: BP 118/74; PULSE 65; RESP 16
== END 2023-06-12 14:56 | disposition home or self-care (01) ==
PROVIDERS: PCP Internal Medicine; Visit Provider Obstetrics & Gynecology
PROC: 0U5B8ZZ Destruction of Endometrium, Via Natural or Artificial Opening Endoscopic (ICD-10-PCS; CPT 58563; principal; 2023-06-12 12:45)
DX: N92.1 Excessive and frequent menstruation with irregular cycle (principal); D25.9 Leiomyoma of uterus, unspecified; D64.9 Anemia, unspecified
CPT/HCPCS: 58558; 88305; A9270; J1100; J2250; J2405; J2704; J3010; J7120

== ENCOUNTER 2023-08-17 19:17 | Emergency (ER) | payer OTHER, SELFPAY ==
--- NOTE | ~2023-08-17 | CT_ITS ---
EXAMINATION: CT cervical spine wo con DATE: 08/18/2023 00:23 INDICATION: fall, hit head TECHNIQUE: Computed tomography (CT) of the cervical spine was performed without intravenous contrast. Automated exposure control and iterative reconstruction technique were employed. The dose-length pro duct was 605.00 mGy-cm. COMPARISON: CT soft tissue neck 10/02/2013. FINDINGS: Vertebral Body Alignment: Intact. Craniocervical and atlantoaxial alignment: Mild degenerative change. Alignment intact. Osseous structures/fracture: No evidence of a lytic or blastic process in the visualized spine. No e vidence of acute fracture. Cervical soft tissues: The paraspinal soft tissues planes are maintained. Biapical pleural scarring. Status post right thyroidectomy. Degenerative changes: No significant degenerative changes. IMPRESSION: No acute fracture or traumatic malalignment in the cervical spine. Reviewed, dictated and finalized at location K. LLOFACIAL PROSTHODONTIST
--- NOTE | ~2023-08-17 | XR_ITS ---
EXAMINATION: XR chest 2V DATE: 08/18/2023 00:15 INDICATION: Left infraclavicular pain post fall TECHNIQUE: PA and lateral views of the chest were obtained. COMPARISON: Chest radiograph dated 05/03/2020 FINDINGS: Lungs are now well expanded and clear with no focal airspace opacities, pulmonary edema, pleural effu marguerite or pneumothorax. Heart size is normal. Calcified mediastinal lymph nodes consistent with old gra nulomatous disease. Cholecystectomy clips in right upper quadrant. Visualized bones and soft tissues are unremarkable. IMPRESSION: 1. No acute cardiopulmonary disease. Reviewed, dictated and finalized at location A. RESS SPRING ENCASER
--- NOTE | ~2023-08-17 | XR_ITS ---
EXAM: XR elbow LT min 3V DATE: 08/17/2023 19:43 HISTORY: pain, injury - FALL . COMPARISON: None available. FINDINGS: Normal mineralization. No fracture or dislocation. No lytic or blastic lesion. Joint space s are maintained. No erosion or periosteal change. Soft tissues within normal limits. IMPRESSION: No acute osseous finding in the left elbow. Reviewed, dictated and finalized at location K. R FILTRATION TECHNICIAN
--- NOTE | ~2023-08-17 | CT_ITS ---
EXAMINATION: CT brain wo con DATE: 08/18/2023 00:24 INDICATION: fell, hit head . TECHNIQUE: Computed tomography (CT) of the head was performed without intravenous contrast. The mA wa s adjusted according to patient size. Iterative reconstruction technique was employed. The dose-lengt h product was 251.00 mGy-cm. COMPARISON: None. FINDINGS: No acute intracranial hemorrhage or extra-axial fluid collection. No hydrocephalus, mass, or herniation. No acute ischemic infarct. Unremarkable dural venous sinus attenuation. No acute osseous abnormality. The aerated spaces are clear. IMPRESSION: No acute intracranial process. Reviewed, dictated and finalized at location K. STITCH LINING MAKER
[2023-08-17 19:24] VITALS: BP 149/97; PULSE 98; RESP 18; TEMP 36.3; O2SAT 100
[2023-08-17 22:38] VITALS: BP 139/85; PULSE 91; RESP 16; TEMP 36.7; O2SAT 100
--- NOTE | 2023-08-17 23:13 | ED.FALL ---
HPI - Fall General Chief Complaint: Fall Stated Complaint: Fall, left elbow, head injury Time Seen by Provider: 08/17/23 22:55 History of Present Illness HPI Narrative: 53-year-old female presents to the emergency department after fall that occurred at 5:45 p.m. kristine. Patient states she was walking into a store slipped on the ice. States she fell and landed on her left elbow. She did hit her head but did not lose consciousness. She is reporting pain to her left elbow, pain inferior to her left clavicle and some neck pain. She is not anticoagulated. Denies vision changes, focal numbness or weakness, lower extremity pain, or extremity pain, back pain, nausea vomiting, seizures. Related Data Home Medications Medication Instructions Recorded Confirmed ferrous sulfate 325 mg (65 mg 325 mg PO DAILY 06/11/23 06/12/23 iron) tablet (Iron (ferrous sulfate)) loratadine 10 mg tablet (Claritin) 10 mg PO DAILY 06/11/23 06/12/23 medroxyprogesterone 10 mg tablet 10 mg PO DAILY 06/11/23 06/12/23 Allergies Allergy/AdvReac Type Severity Reaction Status Date / Time Penicillins Allergy Intermediate RASH Verified 06/12/23 10:51 codeine AdvReac Intermediate NAUSEA Verified 06/12/23 10:51 Review of Systems Review of Systems: CONSTITUTIONAL: Denies fever, chills, or sweats. EYES: Denies visual changes, redness, or discharge. ENT: Denies rhinorrhea, congestion, sore throat, or otalgia. CARDIOVASCULAR: Denies chest pain, palpitations, or edema. RESPIRATORY: Denies cough or dyspnea. GASTROINTESTINAL: Denies abdominal pain, nausea, vomiting, or diarrhea. GENITOURINARY: Denies dysuria or hematuria. SKIN: Denies rash or itching. MUSCULOSKELETAL: See HPI NEUROLOGIC: Denies headache, numbness, or weakness. PSYCHIATRIC: Denies anxiety or depression. 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 HEAD: Normocephalic, atraumatic. EYES: PERRLA and EOMI. ENT: Nares clear, no rhinorrhea or epistaxis. Mucous membranes moist. Bilateral TMs are faustin nonbulging, no hemotympanum NECK: No midline cervical spinous tenderness, step-offs or deformities. CHEST: Clear to auscultation. No respiratory distress. Tenderness to the superior L anterior ribs, just inferior to the clavicle. No tenderness to clavicle. No crepitus, step-offs or deformities. No overlying ecchymosis. HEART: Regular rate and rhythm. No murmur heard. Normal peripheral pulses. ABDOMEN: Soft, nontender, nondistended, normal active bowel sounds. EXTREMITIES: LUE: Tenderness to the olecranon with overlying bursitis, tenderness to brachioradialis with small area of ecchymosis. Full active range of motion of elbow. Median, radial and ulnar nerves intact. Radial pulse 2+. Sensation intact throughout. Three Knife Trimmer strength 5/5. No tenderness remainder of upper or lower extremities. SKIN: Warm, dry, no rash. NEURO: No focal deficits. Alert and oriented x3. Cranial nerves 2-12
[2023-08-18 00:52] VITALS: BP 127/65; PULSE 81; RESP 16; O2SAT 100
[2023-08-18] MEDS: IBUPROFEN 400 MG TABLET 800 MG PO (01:11)
== END 2023-08-18 01:14 | disposition home or self-care (01) ==
PROVIDERS: Emergency Provider Physician Assistant; PCP Internal Medicine
DX: M70.32 Other bursitis of elbow, left elbow (principal); S09.90XA Unspecified injury of head, initial encounter; S20.212A Contusion of left front wall of thorax, initial encounter; E89.0 Postprocedural hypothyroidism; Z86.2 Personal history of diseases of the blood and blood-forming organs and certain disorders involving the immune mechanism; Z85.828 Personal history of other malignant neoplasm of skin; Z90.49 Acquired absence of other specified parts of digestive tract; W00.0XXA Fall on same level due to ice and snow, initial encounter
CPT/HCPCS: 70450; 71046; 72125; 73080; 99284; A9270

== ENCOUNTER 2023-12-17 07:00 | Outpatient (NON) | payer OTHER, SELFPAY | END 2023-12-17 07:01 | disposition home or self-care (01) | PROVIDERS: PCP Internal Medicine; Visit Provider Internal Medicine Gastroenterology | DX: D64.9 Anemia, unspecified (principal) | CPT/HCPCS: 88305 ==

== ENCOUNTER 2023-12-17 10:26 | Day surgery (SDC) | payer OTHER, SELFPAY ==
[2023-12-03 13:32] VITALS: BMI 28.1
[2023-12-11 10:01] VITALS: BMI 27.8
--- NOTE | 2023-12-16 15:30 | WPDANESEPPF ---
Anes - Initial Pre Proc Eval Procedure: Operation Date: 12/17/23 13:00 Proposed Procedures p Esophagogastroduodenoscopy - Robel Quiros MD s Diagnostic Colonoscopy - Robel Quiros MD Date/Time: 12/16/23 15:30 Surgeon: Robel Quiros MD Pre Op Diagnosis: Iron Deficiency, Anemia Patient Data Age: 53 Gender: F Height: 1.7 m Weight: 80.5 kg Allergies Allergy/AdvReac Type Severity Reaction Status Date / Time Penicillins Allergy Intermediate RASH Verified 12/17/23 11:56 codeine AdvReac Intermediate NAUSEA Verified 12/17/23 11:56 Home Medications Medication Instructions Recorded Confirmed Type ferrous sulfate 325 mg (65 mg 325 mg PO DAILY 06/11/23 12/17/23 History iron) tablet (Iron (ferrous sulfate)) loratadine 10 mg tablet (Claritin) 10 mg PO DAILY 06/11/23 12/17/23 History ibuprofen 600 mg tablet 600 mg PO Q6H PRN pain #14 tabs 08/18/23 12/17/23 Rx Patient hx anesthesia problems: none Family hx anesthesia problems: none Results Review: All pre-operative results and documents have been reviewed as part of the pre-operative evaluation. [facility] Past Medical History Medical History (Updated 12/16/23 @ 21:15 by Robel Quiros MD) Abnormal uterine bleeding Anemia Fibroids Skin cancer Surgical History Surgical History H/O thyroidectomy History of bilateral tubal ligation History of endometrial ablation Hx of cholecystectomy Family History Family History Father COPD (chronic obstructive pulmonary disease) Mother Heart attack Social History Social History Smoking status: Never smoker Alcohol intake: current Alcohol use details: occasional Substance use: never Substance use type: does not use Living arrangements: with family Occupation/Education: occupation 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 Informed Consent: The patient's anesthetic plan and its attendant risks and benefits were discussed with the patient/family/POA. Questions were solicited and answers provided to the satisfaction of the patient/family/POA.
--- NOTE | 2023-12-16 21:14 | PM.HPGS ---
History of Present Illness History of Present Illness Consent: Risks, benefits, and alternatives have been discussed and questions answered. Patient agrees to proceed with procedure. Chief complaint: Iron Deficiency, Anemia Narrative: Mela Gomez is a 53 year old female with anemia, Hgb 11. Also, CRP is elevated at 13.8, suggestive of possible IBD. She has not had any significant change in bowel habits. Review of Systems Review of Systems: All systems reviewed & are unremarkable except as noted in HPI and below PMFSH Past Medical History Medical History Abnormal uterine bleeding Anemia Fibroids Skin cancer Surgical History Surgical History H/O thyroidectomy History of bilateral tubal ligation History of endometrial ablation Hx of cholecystectomy Family History Family History Father COPD (chronic obstructive pulmonary disease) Mother Heart attack Social History Social History Smoking status: Never smoker Alcohol intake: current Alcohol use details: occasional Substance use: never Substance use type: does not use Living arrangements: with family Occupation/Education: occupation 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 (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 by the patient): Female Spiritual care concerns: No Meds Home Medications and Allergies Home Medications Medication Instructions Recorded Confirmed Type ferrous sulfate 325 mg (65 mg 325 mg PO DAILY 06/11/23 12/17/23 History iron) tablet (Iron (ferrous sulfate)) loratadine 10 mg tablet (Claritin) 10 mg PO DAILY 06/11/23 12/17/23 History ibuprofen 600 mg tablet 600 mg PO Q6H PRN pain #14 tabs 08/18/23 12/17/23 Rx Allergies Allergy/AdvReac Type Severity Reaction Status Date / Time Penicillins Allergy Intermediate RASH Verified 12/17/23 11:56 codeine AdvReac Intermediate NAUSEA Verified 12/17/23 11:56 Exam Const: General: alert Orientation/consciousness: patient oriented x3 Resp: Auscultation: clear to auscultation bilaterally Cardio: Rhythm: regular rhythm GI: GI Palp: Yes Soft to palpation and No Tenderness to palpation present (GI) Neuro: General: patient oriented x3 Assessment and Plan Assessment and plan (1) Anemia: Code(s): D64.9 - Anemia, unspecified Status: Acute Assessment and Plan: EGD with possible biopsy or dilatation or cautery. Colonoscopy with possible biopsy or polypectomy or cautery or injection of substances.
[2023-12-17 11:58] VITALS: BP 130/82; PULSE 90; RESP 14; TEMP 36.6; O2SAT 100; BMI 27.5
[2023-12-17] MEDS: LACTATED RINGERS 1,000 ML 150 ML IV CONT (12:16)
[2023-12-17 13:12] VITALS: BP 110/79; PULSE 97; RESP 14; O2SAT 99
[2023-12-17 13:22] VITALS: BP 119/85; PULSE 88; RESP 16; O2SAT 100
[2023-12-17 13:33] VITALS: BP 126/81; PULSE 72; RESP 16; O2SAT 100
--- NOTE | 2023-12-17 13:48 | WPDANESPN ---
Anes - Prog Note Post-Op Date/Time: 12/17/23 13:48 Cardiovascular status: normal Respiratory status: normal Airway patency: baseline Mental status: baseline Post-Op hydration status: normal Vital Signs: Last Vital Signs Temp 36.6 C 12/17/23 11:58 Pulse 72 12/17/23 13:33 Resp 16 12/17/23 13:33 BP 126/81 12/17/23 13:33 Pulse Ox 100 12/17/23 13:33 O2 Del Method Room Air 12/17/23 13:33 Pain Score (VAS): 0 I/O: Intake & Output 12/16/23 12/17/23 12/17/23 23:59 07:59 15:59 Intake Total 100 Balance 100 Post-procedural complaints: none Patient Feedback: Patient satisfied with anesthetic care. Other Findings: Patient vital signs back to baseline. Patient denies nausea and vomiting. Patient's pain under control. Patient OK for discharge.
== END 2023-12-17 13:40 | disposition home or self-care (01) ==
PROVIDERS: PCP Internal Medicine; Visit Provider Internal Medicine Gastroenterology
PROC: 0DJ08ZZ Inspection of Upper Intestinal Tract, Via Natural or Artificial Opening Endoscopic (ICD-10-PCS; CPT 43235; principal; 2023-12-17 13:00)
PROC: 0DJD8ZZ Inspection of Lower Intestinal Tract, Via Natural or Artificial Opening Endoscopic (ICD-10-PCS; CPT 45378; 2023-12-17 13:00)
DX: D64.9 Anemia, unspecified (principal)
CPT/HCPCS: 45378; 43239

== ENCOUNTER 2024-06-09 09:50 | Outpatient (CLI) | payer OTHER, SELFPAY ==
--- NOTE | ~2024-06-09 | MR_ITS ---
MR breast BI wo/w con 06/09/2024 11:42 RECEPTION INTERVIEWER INDICATION: TECHNIQUE: MRI of the breasts perform using standard protocol pre-and post IV contrast with the follo wing sequences: Axial T2 STIR, axial T1, axial vibrant T1 with fat suppression precontrast and multip hasic postcontrast. COMPARISON: FINDINGS: There are no abnormalities on the precontrast sequences. There is minimal, mild, moderate, marked background parenchymal enhancement. No enhancing lesions following contrast administration. No areas of enhancement meeting threshold criteria on CAD analysis. No evidence of signal abnormalit ies in the axillary or internal mammary node distributions. LEFT BREAST: No signal abnormalities on precontrast sequences. There is minimal, mild, moderate, mar ked background parenchymal enhancement. No enhancing lesions following contrast administration. No areas of enhancement meeting threshold criteria on CAD analysis. No evidence of signal abnormaliti es in the axillary or internal mammary node distributions.] IMPRESSION: 1: Right breast: Negative. No evidence of malignancy. 2: Left breast: Negative. No evidence of malignancy. Recommendation: Recommend follow-up bilateral mammogram. BI-RADS CATEGORY 0 - INCOMPLETE STUDY, NEED ADDITIONAL IMAGING EVALUATION. Reviewed, dictated and finalized at location B. PTION INTERVIEWER
== END 2024-06-09 09:51 | disposition home or self-care (01) ==
PROVIDERS: PCP Internal Medicine; Visit Provider Internal Medicine
DX: C50.919 Malignant neoplasm of unspecified site of unspecified female breast (principal); R92.8 Other abnormal and inconclusive findings on diagnostic imaging of breast
CPT/HCPCS: 77049; A9577; C8908

== ENCOUNTER 2025-02-09 09:16 | Outpatient (CLI) | payer OTHER, SELFPAY ==
[2025-02-09 09:41] LABS: Hematocrit 27.0 % (37.0-47.0); Hemoglobin 7.5 g/dL (12.0-15.0)
--- OUTSIDE RECORDS SUMMARY | 2025-02-09 09:53 | XMS_ITS | Encounter Summary ---
Author Organization [facility] Address [address] [place] [address] Care Team Providers Care Brand Manager Name Role Phone Daniel Glasgow MD Primary Care Provider Encounter Details Date Type Department Care Team (Late st Contact Info) Description 09/03/2019 Lab Requisition [facility] DermPath Lab [address] [facility] [address] [facility], [place] [id number] Mira Saldivar DO [address] [place] [address] Social History Tobacco Use Types Packs/Day Years Used Date Smoking Tobacco: Never Smokeless Tobacco: Never Alcohol Use Standard Drinks/Week Comments Yes 0 (1 standard drink = 0.6 oz pur e alcohol) socially Comments No Sex and Gender Information Value Date Recorded Sex Assigned at Not on file 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 Gender Identity Not on file Sexual Orientation Not on file documented as of this encounter Plan of Treatment Not on file documented as of this encounter Procedures Procedure Name Priority Date/Time Associated Diagnosis Comments DERMATOPATHOLOGY Routine 09/02/2019 12:0 0 AM BULB FARMWORKER documented in this encounter Results * DERMATOPATHOLOGY (09/02/2019 12:00 AM BULB FARMWORKER) Case Report Dermatopathology Report Case: [id number] Authorizing Provider: Mira Saldivar DO Collected: 09/02/2019 12:00 AM Ordering Location: [facility] DermPath Lab Received: 09/03/2019 06:21 AM Pathologist: Maribel Cervantes MD Specimens: A) - Skin, right upper back B) - Skin, right mid back 0 12:09 PM [facility] DERMATOPATHOLOGY LABORATORY Final Diagnosis Specimen A. SKIN, right upper back: LICHEN PLANUS-LIKE KERATOSIS (BENIGN LICHENOID KERATOSIS) (L82.1) Specimen B. SKIN, right mid back: SUPERFICIAL AND MID PERIVASCULAR LYMPHOCYTIC INFILTRATE WITH EOSINOPHILS (T63.484A) (see microscopic description and comment) 0 12:09 PM [facility] DERMATOPATHOLOGY LABORATORY at [address]9 BULB FARMWORKER Clinical History A: LPLK vs DF R/O atypia. B: Persistent bite R/O NMSC. 0 12:09 PM [facility] DERMATOPATHOLOGY LABORATORY Gross Description Specimen A: Received is one formalin filled container labeled with the patient's name and designated right upper back. The specimen consists of a shave measuring 3r8x2ue. Jar 0. Specimen B: Received is one formalin filled container labeled with the patient's name and designated right mid back. The specimen consists of a shave measuring 4w7b0mh. Jar 0. 0 12:09 PM [facility] DERMATOPATHOLOGY LABORATORY Microscopic Description Specimen A. SKIN, right upper back: The epidermis is mildly acanthotic. There is a lichenoid infiltrate with vacuolar changes of basilar keratinocytes and scattered necrotic keratinocytes. Specimen B. SKIN, right mid back: There is a superficial and deep, perivascular and interstitial infiltrate of lymphocytes with eosinophils. COMMENT: These histological findings are consistent with the clinical impression of arthropod bite reaction. 0 12:09 PM [facility] DERMATOPATHOLOGY LABORATORY Disclaimer An external and internal positive and negative controls are appropriate for the histochemical, immunohistochemical and immunofluorescence stain(s) in this case (if any), except where stated explicitly. The performance characteristics of the stain(s) cited in this report were developed and its performance characteristic determined by the Dermatopathology Laboratory at [facility], directed by Dr. Anamika Cervantes. These tests need not be, and therefore are not, approved by the [place] Food and Drug Administration. The tests are used for clinical purposes. Billing Codes Specimen Charges Stain Charges 02760 80928 1 1 0 12:09 PM BULB FARMWORK[employer] DERMATOPATHOLOGY LABORATORY Embedded Images 0 12:09 PM BULB FARMWORKER DERMATOPATHOLOGY LABORATORY Pathology/Cytology TISSUE SPECIMEN FROM SKIN / Unknown 09/02/2019 09/03/2019 6:21 AM BULB FARMWORKER Miscellaneous samples (specimen) TISSUE SPECIMEN FROM SKIN / Unknown 09/02/2019 09/03/2019 6:21 AM BULB FARMWORKER Mira Saldivar DO LAB - PATHOLOGY/CYTOLOGY ORDERABLES Final Result DERMATOPATHOLOGY LABORATORY [facility] - Department of Dermatology [address] [place] [address] [address] [phone] documented in this encounter Visit Diagnoses Not on filedocumented in this encounter Care Teams Brand Manager Relationship Specialty Start Date End Date Daniel Glasgow MD PCP - General Internal Medicine 04/19/17 documented as of this encounter
--- OUTSIDE RECORDS SUMMARY | 2025-02-09 09:53 | XMS_ITS | Patient Health Record ---
Author Organization [facility] [place] ([address]) Address [address] [place] [address] Care Team Providers Care Photographic Hand Developer Name Role Phone Daniel Glasgow Primary Care Provider Diamond Caba Unavailable [phone] Allergies Allergen (clinical drug ingredient) Drug/Non Drug Allergy documented on EMR Reaction Allergy Type Onset Date Status Penicillin (uncoded) rash Allergy Active Results Component Value Reference Range Notes Spirometry Reviewed date:06/03/2024 10:38:58 AM Interpretation:Abnormal - FVL Performing Lab: Notes/Report: Abnormal - FVL SpiroPreBronchodilator_FVC 3.55 SpiroPostBronchodilator_FEF25_75 0 SpiroPreBronchodilator_FEF25_75 1.66 SpiroPreBronchodilator_FEV1 2.53 SpiroPrecentPredictionPost_FEF25_75 0 SpiroPrecentPredictionPost_FEV1 0 SpiroPrecentPredictionPost_FEV1_OVER_FVC 0 SpiroPrecentPredictionPost_FVC 0 SpiroPrecentPredictionPre_FEF25_75 57 SpiroPrecentPredictionPre_FEV1 86.6 SpiroPrecentPredictionPre_FEV1_OVER_FVC 90 SpiroPrecentPredictionPre_FVC 97.5 SpiroPredicted_FEF25_75 2.91 SpiroPreBronchodilator_FEV1_OVER_FVC 71.18 SpiroPreBronchodilator_PEF 4.94 SpiroPostBronchodilator_FVC 0 SpiroPostBronchodilator_FEV1 0 SpiroPostBronchodilator_FEV1_OVER_FVC 0 SpiroPostBronchodilator_PEF 0 SpiroPredicted_FVC 3.64 SpiroPredicted_FEV1 2.92 SpiroPredicted_FEV1_OVER_FVC 79.1 SpiroPredicted_PEF 6.3 Reason For Referral No Information Medications Medication SIG (Take, Route, Frequency, Duration) Notes Start Date End Date Status Claritin-D 24 Hour 10-240 MG 1 tablet Orally Once a day A ctive Iron (Ferrous Sulfate) 325 (65 Fe) MG 1 tablet Orally Three times a Week Active Social History Tobacco Use: Social History Observation Description Date Details (start date - stop date) Never Smoker NA - NA Tobacco Control (Standard) Question Answer Notes Tobacco use: Nonsmoker Problems Problem Type SNOMED Code ICD Code Onset Dates Problem Status W/U Status Risk Notes Problem Chronic rhinitis (80873468) Chronic rhinitis (J31.0) Active confirmed Problem Chronic sinusitis (50523900) Chronic sinusitis, unspecified (J32.9) Active confirmed Problem Vitamin D deficiency (74264782) Vitamin D deficiency, unspecified (E55.9) Active confirmed Vital Signs Blood pressure diastolic 85 mm Hg 06/03/2024 Oximetry 100 % 06/03/2024 Height 67 in 06/03/2024 Blood pressure systolic 136 mm Hg 06/03/2024 Weight 195.6 lbs 06/03/2024 BMI 30.63 kg/m2 06/03/2024 Encounters Encounter Location Date Provider Diagnosis [facility] [address] [address] 06/03/2024 Diamond Argueta Hypertrophy of nasal turbinates J34.3 ; Chronic rhinitis J31.0 ; Cough, unspecified R05.9 ; Chronic sinusitis, unspecified J32.9 ; Vitamin D deficiency, unspecified E55.9 ; Adverse effect of penicillins, initial encounter T36.0X5A and Elevated blood-pressure reading, without diagnosis of hypertension R03.0 Assessments Encounter Date Diagnosis (ICD Code) Assessment Notes Treatment Notes Treatment Clinical Notes Section Notes 06/03/2024 Chronic rhinitis (ICD-10 - J31.0) As stated above 06/03/2024 Hypertrophy of nasal turbinates (ICD-10 - J34.3) Denies reports lifelong seasonal allergies. She reports constant rhinorrhea, nasal congestion, itchy/watery eyes, PND causing cough. Descriptors of her upper airways symptoms are outlined below. Symptoms are worse in Spring and Fall. Current treatment consists of Claritin-D every day. She reports prior testing with positives to mold, dust and chocolate and immunotherapy for years as a child. Currently has 3 dogs in the home. She also volunteers at a dog residential. - Skin testing was performed to histamine control, resulting in a negative skin prick test without significant wheal and flare reaction indicating pharmaceutical blockade of the receptor. - Will bring her back in one week off all antihistamines for 14 days skin testing. She was instructed to hold all antihistamines prior to her next appointment. - ImmunoCaps ordered for evaluation of atopic disease. 06/03/2024 Cough, unspecified (ICD-10 - R05.9) Mela reports seasonal cough, specifically when PND increases. She reports OCS approximately once per year, specifically for cough. She denies all lower airway symptoms. She was given albuterol inhaler when diagosed with Covid-19 at 2019. She was hospitalized for 4 days at that time and required oxygen. Denies recent albuterol use. She denies all other lower airway symptoms of shortness of breath, chest tightness, nighttime wakings. ACT 24. - Given history and symptoms, spirometry done today and showed normal FVC, FEV1. Borderline FEV%. FVL shows scalloping on exhalation and variable inspiratory and expiratory flow, c/w poor technique. Advanced lung age. - GIven increase in hasal congestion as she has been off her antihistamines, will plan for repeat spirometry in 1 month. Consider BD challenge based off results. Of note, patient reports no lower airway symptoms at this time. Denies BARB use in years. - Follw-up in 1 month for repeat spirometry 06/03/2024 Chronic sinusitis, unspecified (ICD-10 - J32.9) Denies reports frequent sinus infections, treated with antibiotics 2-3 times per year. She reports OCS approximately once per year, specifically for cough. Given recurrent infections, she meets the JMF criteria for modified PIDD workup. - Plan on obtaining modified PIDD work-up and plan on booster/Vitamin D supplementation based on results. 06/03/2024 Vitamin D deficiency, unspecified (ICD-10 - E55.9) R/O with PIDD workup as stated above. 06/03/2024 Adverse effect of penicillins, initial encounter (ICD-10 - T36.0X5A) Mela reports medication allergy to penicillin. She developed rash and hallucinations around age 3 to 4. She continues to avoid at this time. - Discussed PCN testing and patient is interested. Name added to list. 06/03/2024 Elevated blood-pressure reading, without diagnosis of hypertension (ICD-10 - R03.0) BP elevated today without symptoms of urgency or emergency. Continue serial checks and follow-up with PCP 06/03/2024 Other Plan Of Treatment Pending Test Test Name Order Date -Immunoglobulins A/G/M, Qn, Ser 06/03/20 24 -Vitamin D, 25-Hydroxy 06/03/2024 -Haemophilus influenzae B IgG 06/03/2024 -Tetanus/Diphtheria Ab 06/03/2024 -Respiratory Allergens w/Total IgE Area 8 06/03/2024 -Pneumococcal Ab (23 Serotype) 4 Insurance Providers Payer Name Payer Address Payer Phone Subscriber Number Group Number Insured Name Patient Relationship to Insured Coverage Start Date Coverage End Date [facility] [address] [address] [place] [address] [id number] Mela Gomez Self - patient is the insured 4 Medical (General) History Hospitalization History Reason Date(Month/Year) covid 05/01/2020
--- OUTSIDE RECORDS SUMMARY | 2025-02-09 09:53 | XMS_ITS ---
Author Organization [facility] [place] ([address]) Address [address] [place] [address] Care Team Providers Care Career Development Counselor Name Role Phone Daniel Glasgow Primary Care Provider UnavailDiamond Velázquez Unavailable [phone] REASON FOR VISIT Skin testing Encounters Encounter Location Date Provider Diagnosis [facility] [address] [place] [address] 06/10/2024 Diamond Argueta Plan Of Treatment No Information Progress Notes * Go PARKOB:[birth year] (54 yo F)Acc No.[id number]:06/10/2024 Skin Testing Patient: Mela MOORE Provider: WHITNEY Dumas :1970 A ge:53 Y S ex:Female Date:06/10/2024 Address:[facility] [address] [facility] Pcp:Daniel Glasgow Subjective: * Chief Complaints: * 1 . Skin testing. * Medical History: Objective: * Vitals: Assessment: Plan: * Treatment: * Billing Information: * Visit Code: * Procedure Codes: * Electronic signature of WHITNEY Bell on 02/09/2025 at 09:53 AM CDT Sign off status: Pending * Provider: WHITNEY Dumas Date: 1 08/11/2023 Generated for Pamella sherman/Sean/Tranitting on: 0 02/09/2025 09:53 AM CDT
--- OUTSIDE RECORDS SUMMARY | 2025-02-09 09:53 | XMS_ITS | Clinical Summary ---
Author Organization [facility] Address [address] [place] [address] Care Team Providers Care Cemetery Counselor Name Role Phone Unavailable Primary Care Provider Unavailabl e Social History Tobacco Use Types Packs/Day Years Used Date Smoking Tobacco: Never Assessed Comments Unknown Sex and Gender Information Value Date Recorded Sex Assigned at Not on file Legal Sex Female 8:50 AM CDT Gender Identity Not on file Sexual Orientation Not on file Plan of Treatment Health Maintenance Due Date Last Done Comments Hepatitis C Virus (HCV) Screening 1970 TdaP Immunization 1970 Hepatitis B Immunization (1 of 3 - 19+ 3-dose series) 1990 Pap Smear 1992 Cervical Cancer Screening (CCS) 2001 HPV/Cotest 2001 Cologuard 2016 Colonoscopy 2016 Colorectal Cancer Screening 2016 Immunochemical Fecal Occult Blood 2016 Pneumococcal Immunization (5 0+ years) (1 of 1 - PCV) 2021 Zoster Immunization (1 of 2) 2021 SARS-COV-2 Immunization ( - season) 2024 Influenza Immunization (#1) 03/01/202505/01, 03/28/2015 Respiratory Syncytial Virus (RSV) Immunization (Adult) (1 - 1-dose 75+ series) 2046 Human Papillomavirus (HPV) Immunization Aged Out No longer eligible b ased on patient's age to complete this topic Meningococcal Immunization (ACWY) Aged Out No longer eligible b ased on patient's age to complete this topic Rotavirus Immunization Aged Out No lo nger eligible based on patient's age to complete this topic
--- OUTSIDE RECORDS SUMMARY | 2025-02-09 09:53 | XMS_ITS | Encounter Summary ---
Author Organization [facility] Address [address] [place] [address] Care Team Providers Care All Source Collection Manager Name Role Phone Daniel Glasgow MD Primary Care Provider [phone] Encounter Details Date Type Department Care Team (Late st Contact Info) Description 10/14/2023 Lab Requisition [facility] - DermPath Lab [address] [facility], [place] [id number] Edi Cervantes Jr., MD [address] [place] [address] Social History Tobacco Use Types Packs/Day Years Used Date Smoking Tobacco: Never Smokeless Tobacco: Never Alcohol Use Standard Drinks/Week Comments Yes 0 (1 standard drink = 0.6 oz pur e alcohol) socially Comments No Sex and Gender Information Value Date Recorded Sex Assigned at Not on file 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 Gender Identity Not on file Sexual Orientation Not on file documented as of this encounter Plan of Treatment Not on file documented as of this encounter Procedures Procedure Name Priority Date/Time Associated Diagnosis Comments DERMATOPATHOLOGY Routine 10/11/2023 3:33 AM CDT documented in this encounter Results * DERMATOPATHOLOGY (10/11/2023 3:33 AM CDT) Case Report Dermatopathology Report Case: [id number] Authorizing Provider: Edi Cervantes Jr., MD Collected: 10/11/2023 03:33 AM Ordering Location: [facility] - Received: 10/14/2023 02:11 PM DermPath Lab Pathologist: Sandra Matthews MD Specimens: A) - Skin, left suprapubic skin B) - Skin, right anterior shoulder 3:09 PM CDT DERMATOPATHOLOGY LABORATORY Final Diagnosis Specimen A. SKIN, left suprapubic skin: BASAL CELL CARCINOMA, NODULAR TYPE; PIGMENTED (C44.519) Specimen B. SKIN, right anterior shoulder: NEUROFIBROMA (D36.10) 3:09 PM CDT DERMATOPATHOLOGY LABORATORY at 1509 CDT Clinical History A: Melanoma vs Pigmented SK vs Pigmented BCC. 3:09 PM CDT DERMATOPATHOLOGY LABORATORY Gross Description Specimen A: Received is one formalin filled container labeled with the patient's name and designated left suprapubic skin. The specimen consists of a shave biopsy measuring 5x5x1 mm. Jar 0. Specimen B: Received is one formalin filled container labeled with the patient's name and designated right anterior shoulder. The specimen consists of a shave biopsy measuring 5x5x2 mm. Jar 0. 3:09 PM CDT DERMATOPATHOLOGY LABORATORY Microscopic Description Specimen A. SKIN, left suprapubic skin: There are aggregates of basaloid cells with a high nuclear to cytoplasmic ratio and peripheral palisading. There is abundant melanin. Specimen B. SKIN, right anterior shoulder: Sections show a proliferation of spindled and S-shaped cells within the dermis. The stromal collagen is delicate and pale. 3:09 PM CDT DERMATOPATHOLOGY LABORATORY Disclaimer An external and internal positive and negative controls are appropriate for the histochemical, immunohistochemical and immunofluorescence stain(s) in this case (if any), except where stated explicitly. The performance characteristics of the stain(s) cited in this report were developed and its performance characteristic determined by the Dermatopathology Laboratory at [facility], directed by Dr. Anamika Cervantes. These tests need not be, and therefore are not, approved by the [place] Food and Drug Administration. The tests are used for clinical purposes. Billing Codes Specimen Charges Stain Charges 03041 32480 1 1 4 3:09 PM CDT DERMATOPATHOLOGY LABORATORY Embedded Images 4 3:09 PM CDT DERMATOPATHOLOGY LABORATORY Pathology/Cytology TISSUE SPECIMEN FROM SKIN / Unknown 10/11/2023 3:33 AM CDT 10/14/2023 2:11 PM CDT Miscellaneous samples (specimen) TISSUE SPECIMEN FROM SKIN / Unknown 10/11/2023 3:33 AM CDT 10/14/2023 2:14 PM CDT us Edi Cervantes Jr., MD LAB - PATHOLOGY/CYTOLOG Y ORDERABLES Final Result DERMATOPATHOLOGY LABORATORY [facility] - Department of Dermatology [facility] Specialized Medicine [address] [place] [address], [address] [phone] documented in this encounter Visit Diagnoses Not on filedocumented in this encounter Care Teams All Source Collection Manager Relationship Specialty Start Date End Date Daniel Glasgow MD PCP - General Internal Medicine 04/19/17 documented as of this encounter
--- OUTSIDE RECORDS SUMMARY | 2025-02-09 09:53 | XMS_ITS | Encounter Summary ---
Author Organization [facility] Health Address [address] [place] [address] Care Team Providers Care Supervisor Garage Name Role Phone Daniel Glasgow MD Primary Care Provider [phone] Encounter Details Date Type Department Care Team (Late st Contact Info) Description 11/25/2023 Lab Requisition [facility] - DermPath Lab [address] [facility], [place] [id number] Edi Cervantes Jr., MD [address] 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 Gender Identity Not on file Sexual Orientation Not on file documented as of this encounter Plan of Treatment Not on file documented as of this encounter Procedures Procedure Name Priority Date/Time Associated Diagnosis Comments DERMATOPATHOLOGY Routine 11/21/2023 3:33 AM CDT documented in this encounter Results * DERMATOPATHOLOGY (11/21/2023 3:33 AM CDT) Case Report Dermatopathology Report Case: [id number] Authorizing Provider: Edi Cervantes Jr., MD Collected: 11/21/2023 03:33 AM Ordering Location: [facility] - Received: 11/25/2023 09:39 AM DermPath Lab Pathologist: Aida Prajapati MD Specimen: Skin, left lateral abdomen 3:08 PM CDT DERMATOPATHOLOGY LABORATORY Final Diagnosis Specimen A. SKIN, left lateral abdomen: DERMAL SCAR RESIDUAL BASAL CELL CARCINOMA NOT IDENTIFIED (L90.5) 3:08 PM CDT DERMATOPATHOLOGY LABORATORY at 1508 CDT Clinical History BCC. . Check margins 3:08 PM CDT DERMATOPATHOLOGY LABORATORY Gross Description Specimen A: Received is one formalin filled container labeled with the patient's name and designated left lateral abdomen.The specimen consists of an ellipse measuring [id number] mm and is oriented with the suture at the 3 o'clock position labeled on the requisition as suture. The 12 to 6 o'clock margin is inked green. The 6 o'clock to 12 o'clock margin is inked red. The 12 o'clock tip is submitted in cassette 1. The 6 o'clock tip is submitted in cassette 2. The remainder of the ellipse is serially sectioned and submitted in cassettes 3-4. Jar 0. 3:08 PM CDT DERMATOPATHOLOGY LABORATORY Microscopic Description Specimen A. SKIN, left lateral abdomen: There are fibroblasts and collagen bundles oriented parallel to the skin surface. There are elongated blood vessels, some of which are oriented perpendicular to the skin surface. No basal cell carcinoma is identified. 3:08 PM CDT DERMATOPATHOLOGY LABORATORY Disclaimer An external and internal positive and negative controls are appropriate for the histochemical, immunohistochemical and immunofluorescence stain(s) in this case (if any), except where stated explicitly. The performance characteristics of the stain(s) cited in this report were developed and its performance characteristic determined by the Dermatopathology Laboratory at [facility], directed by Dr. Anamika Cervantes. These tests need not be, and therefore are not, approved by the [place] Food and Drug Administration. The tests are used for clinical purposes. Billing Codes Specimen Charges Stain Charges 60713 1 05/29/202 4 3:08 PM CDT DERMATOPATHOLOGY LABORATORY Embedded Images 4 3:08 PM CDT DERMATOPATHOLOGY LABORATORY Pathology/Cytolo gy TISSUE SPECIMEN FROM SKIN / Unknown 11/21/2023 3:33 AM CDT 11/25/2023 9:39 AM CDT us Edi Cervantes Jr., MD LAB - PATHOLOGY/CYTOLOG Y ORDERABLES Final Result DERMATOPATHOLOGY LABORATORY [facility] - Department of Dermatology [facility] Medicine [address] [place] [address], [address] [phone] documented in this encounter Visit Diagnoses Not on filedocumented in this encounter Care Teams Supervisor Garage Relationship Specialty Start Date End Date Daniel Glasgow MD PCP - General Internal Medicine 04/19/17 documented as of this encounter
--- OUTSIDE RECORDS SUMMARY | 2025-02-09 09:53 | XMS_ITS | Clinical Summary ---
Author Organization [facility] Address [address] [facility] [place] [address] Care Team Providers Care Tank Pumper Name Role Phone Daniel Glasgow MD Primary Care Provider [phone] Source Comments [facility],non-owned Affiliates and Associated Physician Practices is amultiple site organization consisting of ambulatory clinics and hospital sitesin [place], [place], [place] and [place]. This disclosure is being madepursuant to the Care Everywhere program and may not contain all information available regarding this patient. Last updated 18.[facility] Allergies Active Allergy Reactions Criticality Noted Date Comments Codeine GI Discomfort 07/18/2011 Penicillins Rash Low 07/18/2011 Medications * Be aware that medications may not be up to date on this document. Alwaysverify current medications with the patient. loratadine (CLARITIN) 10 MG tablet Take 10 mg by mouth once daily. Active fluticasone propionate (FLONASE) 50 MCG/ACT nasal sprayIndication s:Acute ethmoidal sinusitis, recurrence not specified [place] 2 sprays into each nostril once daily 1 bottles 7 Active Additional Information Patient not taking.Reported on 03/16/2019 triamcinolone acetonide (KENALOG) 0.1 % creamIndication s:Scabies Apply to affected area 3 times daily 60 g 9 Active Family History Medical History Relation Name Comments Blood Disease Father IT-high platle ts Heart Disease Mother ME Relation Name Status Comments Father Mother Social History Tobacco Use Types Packs/Day Years Used Date Smoking Tobacco: Never Smokeless Tobacco: Never Alcohol Use Standard Drinks/Week Comments Yes 0 (1 standard drink = 0.6 oz pur e alcohol) socially Comments No Sex and Gender Information Value Date Recorded Sex Assigned at Not on file 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 Gender Identity Not on file Sexual Orientation Not on file Last Filed Vital Signs Vital Sign Reading Time Taken Comments Blood Pressure 112/82 03/16/2019 9:05 AM CDT Pulse 74 03/16/2019 9:05 AM CDT Temperature 36.9 C (98.5 F) 03/16/2019 9:05 AM CDT Respiratory Rate 16 03/16/2019 9:05 AM CDT Oxygen Saturation 99% 03/16/2019 9:05 AM CDT Inhaled Oxygen Concentration - - Weight 90.7 kg (200 lb) 03/16/2019 9:05 AM CDT Height 170.2 cm (5' 7) 03/16/2019 9:05 AM CDT Body Mass Index 31.32 03/16/2019 9:05 AM CDT Plan of Treatment Health Maintenance Due Date Last Done Comments COLOGUARD (AGES 45-75) - COL ON CA SCREENING 1971 COLON MONITORING 1971 COLONOSCOPY - COLON CA SCREENING 1971 CT COLONOGRAPHY - COLON CA SCREENING 1971 Colorectal Cancer Screening 1971 FIT - COLON CA SCREENING 1971 FLEX SIG - COLON CA SCREENING 1971 LIPID TESTING 1971 MAMMOGRAM 1971 HIV SCREENING 1986 HEPATITIS C SCREENING 08/08/1989 DTAP/TDAP/TD VACCINES (1 - Tdap) 1990 HEPATITIS B VACCINE (1 of 3 - 19+ 3-dose series) 1990 PAP SMEAR 1992 SCREENING FOR DIABETES 03/16/2019 PNEUMOCOCCAL VACCINE 50+ (1 of 1 - PCV) 2021 ZOSTER VACCINE (1 of 2) 2021 COVID-19 VACCINE (1 - 2023-2 5 season) 2024 DEPRESSION SCREENING 07/01/2024 INFLUENZA VACCINE (#1) 2025 7, 03/28/2015 HIB VACCINE Aged Out No longer eligi ble based on patient's age to complete this topic HPV VACCINE Aged Out No longer eligi ble based on patient's age to complete this topic MENINGOCOCCAL (Group B) VACCINE SHARED DECISION-MAKING Aged Out No longer eligible based on patient's age to complete this topic MENINGOCOCCAL GROUPS A/C/Y/W VACCINE Aged Out No longer eligible b ased on patient's age to complete this topic Insurance [facility] Address: [facility] [id number] [place] [address] T AET SELF PAY NO INSURANCE Member Subscriber Plan / Payer (Ef fective for All Dates) Name:Mela Park Member ID:Not on file Relation to Subscriber:Not on file Name:MELA PARK Subscriber ID:Not on file Address: [address] [place] [address] [place] [address] Payer ID:Not on file Group ID:Not on file Type:Self Pay Address: [place], [place] * Guarantor: PATRICIAMELA Account Type Relation to Patient Date of Phone Billing Address Personal/Family [address] [place] [address] [place] [address] AETNA SELF PAY NO INSURANCE Member Subscriber Plan / Payer (Ef fective for All Dates) Name:Mela Park Member ID:Not on file Relation to Subscriber:Not on file Name:MELA PARK Subscriber ID:Not on file Address: [address] [place] [address] [place] [address] Payer ID:Not on file Group ID:Not on file Type:Self Pay Address: [place], [place] * Guarantor: TANGELA PARKISE Account Type Relation to Patient Date of Phone Billing Address Personal/Family [facility] [address] [place] [address] AETNA SELF PAY NO INSURANCE Member Subscriber Plan / Payer (Ef fective for All Dates) Name:Mela Park Gio Member ID:Not on file Relation to Subscriber:Not on file Name:ARIESVETOTANGELA MurphyMELA Subscriber ID:Not on file Address: [facility] [address] [place] [address] Payer ID:Not on file Group ID:Not on file Type:Self Pay Address: [place], [place] * Guarantor: MELA PARK Account Type Relation to Patient Date of Phone Billing Address Personal/Family [facility] [place] [address] AETNA SELF PAY NO INSURANCE Member Subscriber Plan / Payer (Ef fective for All Dates) Name:Mela Park Gio Member ID:Not on file Relation to Subscriber:Not on file Name:MELA PARK Subscriber ID:Not on file Address: [facility] [place] [address] Payer ID:Not on file Group ID:Not on file Type:Self Pay Address: [place], [place] Care Teams Tank Pumper Relationship Specialty Start Date End Date Daniel Glasgow MD PCP - General Internal Medicine 04/19/17
--- OUTSIDE RECORDS SUMMARY | 2025-02-09 09:53 | XMS_ITS | Clinical Summary ---
Author Organization [facility] Address [address] [place] [address] Care Team Providers Care Patient Navigator Name Role Phone Unavailable Primary Care Provider Unavailabl e Social History Tobacco Use Types Packs/Day Years Used Date Smoking Tobacco: Never Assessed Comments Unknown Sex and Gender Information Value Date Recorded Sex Assigned at Not on file Legal Sex Female 8:27 PM CDT Gender Identity Not on file Sexual Orientation Not on file Plan of Treatment Health Maintenance Due Date Last Done Comments Cervical Cancer Screening Pa p Smear (Age 30 to 64) Every 3 Years 1971 Colorectal Cancer Screening Colonoscopy (10 Years) 1971 Annual Physical 1974 Hepatitis C 1989 DTaP, Tdap and Td Vaccines ( 1 - Tdap) 1990 Hepatitis B Vaccines (1 of 3 - 19+ 3-dose series) 1990 Cervical Cancer Screening Pa p with HPV Testing (Age 30 to 64) Every 5 Years 2001 Cervical Cancer Screening with HPV 2001 Mammogram Screening 2011 Pneumococcal Vaccine: 50+ Ye ars (1 of 1 - PCV) 2021 Zoster Vaccines (1 of 2) 2021 COVID-19 Vaccine (2023-2 5 season) 2024 Meningococcal B Vaccine Aged Out No l onger eligible based on patient's age to complete this topic Meningococcal Vaccine Aged Out No meño soraya eligible based on patient's age to complete this topic RSV Immunizations Under 20 Months Aged Out No longer eligible based on patient's age to complete this topic
== END 2025-02-09 09:17 | disposition home or self-care (01) ==
LOC: ANHSURGERY 09:19
PROVIDERS: Anesthesiology; PCP Internal Medicine; Visit Provider Obstetrics & Gynecology
DX: D64.9 Anemia, unspecified (principal); D25.9 Leiomyoma of uterus, unspecified; N92.1 Excessive and frequent menstruation with irregular cycle
CPT/HCPCS: 36415; 85014; 85018; 86850; 86900; 86901

== ENCOUNTER 2025-02-10 12:50 | Emergency (ER) | payer OTHER, SELFPAY ==
--- NOTE | ~2025-02-10 | CT_ITS ---
EXAMINATION: CTA chest PE protocol DATE: 02/10/2025 17:17 CDT INDICATION: Chest pain. Shortness of breath TECHNIQUE: Computed tomographic angiography (CTA) of the chest was performed with 100 mL Omnipaque-35 0 intravenous contrast. The dose-length product was 375.93 mGy-cm. Maximum intensity projection 3D-re constructions of the aorta and other arteries were constructed by the technologist on a separate work station. COMPARISON: None. FINDINGS: Right thyroid lobe is absent. No enlarged mediastinal or hilar lymph nodes. Heart is unenlarged. Thoracic aorta is grossly unremark able. There is a too small to characterize low-attenuation lesion in the left lobe of the liver. Mild biapical scarring. No pneumothorax. No pleural effusion. No pulmonary mass. Small groundglass op acities in the lower lobes. No pulmonary pulmonary mass identified. No compression fracture in the visualized spine. IMPRESSION: 1. No pulmonary embolism identified. 2. Small groundglass opacities in the lower lobes. Differential includes is not limited to atelectasi s or an inflammatory/infectious process. Findings as above. Reviewed, dictated and finalized at location A. IMPRESSION: 1. No pulmonary embolism identified. 2. Small groundglass opacities in the lower lobes. Differential includes is not limited to atelectasis or an inflammatory/infectious process. Findings as above.
--- NOTE | ~2025-02-10 | XR_ITS ---
EXAMINATION: XR chest 1V DATE: 02/10/2025 14:25 INDICATION: Chest pain and shortness of breath TECHNIQUE: frontal view of the chest was obtained. COMPARISON: Chest radiograph dated 08/18/2023 FINDINGS: The lungs are clear with no focal airspace opacities, pulmonary edema, pleural effusion or pneumothor ax. The cardiomediastinal silhouette is normal. Visualized bones and soft tissues are unremarkable. IMPRESSION: 1. No acute cardiopulmonary disease. Reviewed, dictated and finalized at location A.
[2025-02-10 12:52] VITALS: BP 147/95; PULSE 96; RESP 16; TEMP 36.7; O2SAT 100
--- OUTSIDE RECORDS SUMMARY | 2025-02-10 12:53 | XMS_ITS | Clinical Summary ---
Author Organization [facility] Address [address] [place] [address] Care Team Providers Care Melter Operator Name Role Phone Unavailable Primary Care Provider [...]
--- OUTSIDE RECORDS SUMMARY | 2025-02-10 12:53 | XMS_ITS ---
Author Organization [facility] ([address]) Address [address] [place] [address] Care Team Providers Care Software Engineer Kernel Name Role Phone Daniel Glasgow Primary Care Provider UnavailDiamond Velázquez Unavailable [phone] REASON FOR VISIT Skin testing Encounters Encounter Location Date Provider Diagnosis [facility] [address] [place] [address] 06/10/2024 Diamond Argueta Plan Of Treatment No Information Progress Notes * Go PARKOB:[birth year] (54 yo F)Acc No.[id number]:06/10/2024 Skin Testing Patient: Mela MOORE Provider: WHITNEY Dumas :1970 A ge:53 Y S ex:Female Date:06/10/2024 Address:[facility] [address] [id number] Pcp:Daniel Glasgow Subjective: * Chief Complaints: * 1 . Skin testing. * Medical History: Objective: * Vitals: Assessment: Plan: * Treatment: * Billing Information: * Visit Code: * Procedure Codes: * Electronic signature of WHITNEY Bell on 02/10/2025 at 12:53 PM CDT Sign off status: Pending * Provider: WHITNEY Dumas Date: 1 08/11/2023 Generated for Pamella sherman/Sean/Tranitting on: 0 02/10/2025 12:53 PM CDT
--- OUTSIDE RECORDS SUMMARY | 2025-02-10 12:53 | XMS_ITS | Encounter Summary ---
Author Organization [facility] Health Address [address] [facility] [place] [address] Care Team Providers Care Skiver Sock Linings Name Role Phone Daniel Glasgow MD Primary Care Provider [phone] Encounter Details Date Type Department Care Team (Late st Contact Info) Description 10/14/2023 Lab Requisition [facility] - DermPath Lab [address] [facility], [place] [phone] Edi Cervantes Jr., MD [address] [facility] [address] [place] [address] Social History Tobacco Use Types Packs/Day Years Used Date Smoking Tobacco: Never Smokeless Tobacco: Never Alcohol Use Standard Drinks/Week Comments Yes 0 (1 standard drink = 0.6 oz pur e alcohol) socially Comments No Sex and Gender Information Value Date Recorded Sex Assigned at Not on file 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 Gender Identity Not on file Sexual Orientation Not on file documented as of this encounter Plan of Treatment Not on file documented as of this encounter Procedures Procedure Name Priority Date/Time Associated Diagnosis Comments DERMATOPATHOLOGY Routine 10/11/2023 3:33 AM CDT documented in this encounter Results * DERMATOPATHOLOGY (10/11/2023 3:33 AM CDT) Case Report Dermatopathology Report Case: [id number] Authorizing Provider: Edi Cervantes Jr., MD Collected: 10/11/2023 03:33 AM Ordering Location: [facility] - Received: 10/14/2023 02:11 PM [...] characteristic determined by the Dermatopathology Laboratory at [facility], directed by Dr. Anamika Cervantes. These tests need not be, and therefore are not, approved by the [place] Food and Drug Administration. The tests are used for clinical purposes. Billing Codes Specimen Charges Stain Charges 22113 88833 1 1 4 3:09 PM CDT DERMATOPATHOLOGY [...] DERMATOPATHOLOGY LABORATORY [facility] - Department of Dermatology [facility] Medicine [address] [place] [address], [address] [phone] documented in this encounter Visit Diagnoses Not on filedocumented in this encounter Care Teams Skiver Sock Linings Relationship Specialty Start Date End Date Daniel Glasgow MD PCP - General Internal Medicine 04/19/17 documented as of this encounter
--- OUTSIDE RECORDS SUMMARY | 2025-02-10 12:53 | XMS_ITS | Clinical Summary ---
Author Organization [facility] Address [address] [place] [address] Care Team Providers Care Breeding Technician Name Role Phone Unavailable Primary Care Provider [...]
--- OUTSIDE RECORDS SUMMARY | 2025-02-10 12:53 | XMS_ITS | Encounter Summary ---
Author Organization [facility] Health Address [address] [facility] [place] [address] Care Team Providers Care Senior Sales Administrator Name Role Phone Daniel Glasgow MD Primary Care Provider [phone] Encounter Details Date Type Department Care Team (Late st Contact Info) Description 11/25/2023 Lab Requisition [facility] - DermPath Lab [address] [facility], [place] [id number] Edi Cervantes Jr., MD [address] [facility] [address] [place] [address] Social History Tobacco Use Types Packs/Day Years Used Date Smoking Tobacco: Never Smokeless Tobacco: Never Alcohol Use Standard Drinks/Week Comments Yes 0 (1 standard drink = 0.6 oz pur e alcohol) socially Comments No Sex and Gender Information Value Date Recorded Sex Assigned at Not on file 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 Gender Identity Not on file Sexual Orientation Not on file documented as of this encounter Plan of Treatment Not on file documented as of this encounter Procedures Procedure Name Priority Date/Time Associated Diagnosis Comments DERMATOPATHOLOGY Routine 11/21/2023 3:33 AM CDT documented in this encounter Results * DERMATOPATHOLOGY (11/21/2023 3:33 AM CDT) Case Report Dermatopathology Report Case: [id number] Authorizing Provider: Edi Cervantes Jr., MD Collected: 11/21/2023 03:33 AM Ordering Location: [facility] - Received: 11/25/2023 09:39 AM DermPath [...] abdomen.The specimen consists of an ellipse measuring [id number] mm and is oriented with the suture [...] characteristic determined by the Dermatopathology Laboratory at [facility], directed by Dr. Anamika Cervantes. These tests need not be, and therefore are not, approved by the [place] Food and Drug Administration. The tests are used for clinical purposes. Billing Codes Specimen Charges Stain Charges 79534 1 05/29/202 4 3:08 PM CDT DERMATOPATHOLOGY LABORATORY Embedded Images 4 3:08 PM CDT DERMATOPATHOLOGY LABORATORY Pathology/Cytolo gy TISSUE SPECIMEN FROM SKIN / Unknown 11/21/2023 3:33 AM CDT 11/25/2023 9:39 AM CDT us Edi Cervantes Jr., MD LAB - PATHOLOGY/CYTOLOG Y ORDERABLES Final Result DERMATOPATHOLOGY LABORATORY [facility] - Department of Dermatology [facility] Medicine [address] [place] [address], [address] [phone] documented in this encounter Visit Diagnoses Not on filedocumented in this encounter Care Teams Senior Sales Administrator Relationship Specialty Start Date End Date Daniel Glasgow MD PCP - General Internal Medicine 04/19/17 documented as of this encounter
--- OUTSIDE RECORDS SUMMARY | 2025-02-10 12:53 | XMS_ITS | Clinical Summary ---
Author Organization [facility] Address [address] [place] [address] Care Team Providers Care Export Coordinator Name Role Phone Daniel Glasgow MD Primary Care Provider [phone] Source Comments [facility],non-owned Affiliates and Associated Physician Practices is amultiple site organization consisting of ambulatory clinics and hospital sitesin [place], [place], [place] and [place]. This disclosure is being madepursuant to the Care Everywhere program and may not contain all information available regarding this patient. Last updated 18.[facility] Allergies Active Allergy Reactions Criticality Noted Date Comments Codeine GI Discomfort 07/18/2011 Penicillins Rash Low 07/18/2011 Medications * Be aware that medications may not be up to date on this document. Alwaysverify current medications with the patient. loratadine (CLARITIN) 10 MG tablet Take 10 mg by mouth once daily. Active fluticasone propionate (FLONASE) 50 MCG/ACT nasal sprayIndication s:Acute ethmoidal sinusitis, recurrence not specified [place] 2 sprays into each nostril once daily 1 bottles 7 Active Additional Information Patient not taking.Reported on 03/16/2019 triamcinolone acetonide (KENALOG) 0.1 % creamIndication s:Scabies Apply to affected area 3 times daily 60 g 9 Active Family History Medical History Relation Name Comments Blood Disease Father IT-high platle ts Heart Disease Mother MD Relation Name Status Comments Father Mother Social History Tobacco Use Types Packs/Day Years Used Date Smoking Tobacco: Never Smokeless Tobacco: Never Alcohol Use Standard Drinks/Week Comments Yes 0 (1 standard drink = 0.6 oz pur e alcohol) socially Comments No Sex and Gender Information Value Date Recorded Sex Assigned at Not on file 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 Gender Identity Not on file Sexual Orientation [...] patient's age to complete this topic Insurance [facility] Address: [facility] [address] [place] [address] T AET SELF PAY NO INSURANCE Member Subscriber Plan / Payer (Ef fective for All Dates) Name:Mela Park Member ID:Not on file Relation to Subscriber:Not on file Name:MELA PARK Subscriber ID:Not on file Address: [address] [place] [address] [place] [address] Payer ID:Not on file Group ID:Not on file Type:Self Pay Address: [place], [place] * Guarantor: PATRICIAMELA Account Type Relation to Patient Date of Phone Billing Address Personal/Family [address] [place] [address] [place] [address] AETNA SELF PAY NO INSURANCE Member Subscriber Plan / Payer (Ef fective for All Dates) Name:Mela Park Member ID:Not on file Relation to Subscriber:Not on file Name:MELA PARK Subscriber ID:Not on file Address: [address] [place] [address] [place] [address] Payer ID:Not on file Group ID:Not on file Type:Self Pay Address: [place], [place] * Guarantor: TANGELA PARKISE Account Type Relation to Patient Date of Phone Billing Address Personal/Family [facility] [address] [place] [address] AETNA SELF PAY NO INSURANCE Member Subscriber Plan / Payer (Ef fective for All Dates) Name:Mela Park Gio Member ID:Not on file Relation to Subscriber:Not on file Name:ARIESVETOTANGELA MurphyMELA Subscriber ID:Not on file Address: [facility] [address] [place] [address] Payer ID:Not on file Group ID:Not on file Type:Self Pay Address: [place], [place] * Guarantor: MELA PARK Account Type Relation to Patient Date of Phone Billing Address Personal/Family [facility] [place] [address] AETNA SELF PAY NO INSURANCE Member Subscriber Plan / Payer (Ef fective for All Dates) Name:Mela Park Gio Member ID:Not on file Relation to Subscriber:Not on file Name:MELA PARK Subscriber ID:Not on file Address: [facility] [place] [address] Payer ID:Not on file Group ID:Not on file Type:Self Pay Address: [place], [place] Care Teams Export Coordinator Relationship Specialty Start Date End Date Daniel Glasgow MD PCP - General Internal Medicine 04/19/17
--- OUTSIDE RECORDS SUMMARY | 2025-02-10 12:53 | XMS_ITS | Encounter Summary ---
Author Organization [facility] Address [address] [place] [address] Care Team Providers Care Concrete Bucket Unloader Name Role Phone Daniel Glasgow MD Primary Care Provider [phone] Encounter Details Date Type Department Care Team (Late st Contact Info) Description 09/03/2019 Lab Requisition [facility] Care DermPath Lab [address] [facility] [place] [id number] Mira Saldivar DO [address] [place] [address] Social History Tobacco Use Types Packs/Day Years Used Date Smoking Tobacco: Never Smokeless Tobacco: Never Alcohol Use Standard Drinks/Week Comments Yes 0 (1 standard drink = 0.6 oz pur e alcohol) socially Comments No Sex and Gender Information Value Date Recorded Sex Assigned at Not on file Legal Sex Female 1:01 PM [employer] Gender Identity Not on file Sexual Orientation Not on file documented as of this encounter Plan of Treatment Not on file documented as of this encounter Procedures Procedure Name Priority Date/Time Associated Diagnosis Comments DERMATOPATHOLOGY Routine 09/02/2019 12:0 0 AM [employer] documented in this encounter Results * DERMATOPATHOLOGY (09/02/2019 12:00 AM [employer]) Case Report Dermatopathology Report Case: [id number] Authorizing Provider: Mira Saldivar DO Collected: 09/02/2019 12:00 AM Ordering Location: [facility] DermPath Lab Received: 09/03/2019 06:21 AM Pathologist: Maribel Cervantes MD Specimens: A) - Skin, right upper back B) - Skin, right mid back 0 12:09 PM [facility] DERMATOPATHOLOGY LABORATORY Final Diagnosis Specimen A. SKIN, right upper back: LICHEN PLANUS-LIKE KERATOSIS (BENIGN LICHENOID KERATOSIS) (L82.1) Specimen B. SKIN, right mid back: SUPERFICIAL AND MID PERIVASCULAR LYMPHOCYTIC INFILTRATE WITH EOSINOPHILS (T63.484A) (see microscopic description and comment) 0 12:09 PM [facility] DERMATOPATHOLOGY LABORATORY at [address] [employer] Clinical History A: LPLK vs DF R/O atypia. B: Persistent bite R/O NMSC. 0 12:09 PM [facility] DERMATOPATHOLOGY LABORATORY Gross Description Specimen A: Received is one formalin filled container labeled with the patient's name and designated right upper back. The specimen consists of a shave measuring [id number]. Jar 0. Specimen B: Received is one formalin filled container labeled with the patient's name and designated right mid back. The specimen consists of a shave measuring [id number]. Jar 0. 0 12:09 PM [facility] DERMATOPATHOLOGY LABORATORY Microscopic Description Specimen A. [...] of arthropod bite reaction. 0 12:09 PM [facility] DERMATOPATHOLOGY LABORATORY Disclaimer An external and internal positive and negative controls are appropriate for the histochemical, immunohistochemical and immunofluorescence stain(s) in this case (if any), except where stated explicitly. The performance characteristics of the stain(s) cited in this report were developed and its performance characteristic determined by the Dermatopathology Laboratory at [facility], directed by Dr. Anamika Cervantes. These tests need not be, and therefore are not, approved by the [place] Food and Drug Administration. The tests are used for clinical purposes. Billing Codes Specimen Charges Stain Charges 27184 91936 1 1 0 12:09 PM [employer] DERMATOPATHOLOGY LABORATORY Embedded Images 0 12:09 PM [employer] DERMATOPATHOLOGY LABORATORY Pathology/Cytology TISSUE SPECIMEN FROM SKIN / Unknown 09/02/2019 09/03/2019 6:21 AM [employer] Miscellaneous samples (specimen) TISSUE SPECIMEN FROM SKIN / Unknown 09/02/2019 09/03/2019 6:21 AM [employer] Mira Saldivar DO LAB - PATHOLOGY/CYTOLOGY ORDERABLES Final Result DERMATOPATHOLOGY LABORATORY [facility] - Department of Dermatology [address] [place] [address] [address] [phone] documented in this encounter Visit Diagnoses Not on filedocumented in this encounter Care Teams Concrete Bucket Unloader Relationship Specialty Start Date End Date Daniel Glasgow MD PCP - General Internal Medicine 04/19/17 documented as of this encounter
--- OUTSIDE RECORDS SUMMARY | 2025-02-10 12:53 | XMS_ITS | Continuity of Care Document ---
Author Organization [facility] Address [address] [place] [address] Phone Care Team Providers Care Staffing Recruiter Name Role Phone Doisy, Edward Unavailable Unavailable Advance Directives Directive Yes / No Effective Date File Name No Information Encounters Encounter Description Practice Location Reason(s) For Visit Diagnoses Date Provider Providers Copied on Encounter [facility], [address], [place], [place], [id number], [place] tel:[phone] [facility] No Information Apr-2 1-200 0 Doisy Edward. [address] , [address], [place], [address], [place]. tel:[phone] Family History Family Member Type Diagnosis Age At Onset No Information Payers Payer name Insurance type Covered alliance party ID Authoriza tion(s) No Information Social History Type Description Quantity Date Captured Comments Sex Female Smoking Status No Information Chief Complaint And Reason For Visit No Information Reason For Referral Reason For Referral No Information History Of Present Illness Encounter Date Complaint History Of Prese nt Illness No Information Functional Status Date Functional Assessmen t No Information Instructions Date Instruction Additional Infor mation No Information Assessments Type Assessment Date No Information Patient Care Teams Name Effective Dates (start - stop) Status Members No Information
--- OUTSIDE RECORDS SUMMARY | 2025-02-10 12:54 | XMS_ITS | Patient Health Record ---
Author Organization [facility] [employer] [place] ([address]) Address [address] [place] [address] Care Team Providers Care E Commerce Marketing Analyst Name Role Phone Daniel Glasgow Primary Care Provider Diamond Cbaa Unavailable [phone] Allergies Allergen (clinical drug ingredient) Drug/Non Drug [...] W/U Status Risk Notes Problem Chronic rhinitis (37622965) Chronic rhinitis (J31.0) Active confirmed Problem Chronic sinusitis (55443044) Chronic sinusitis, unspecified (J32.9) Active confirmed Problem Vitamin D deficiency (88683084) Vitamin D deficiency, unspecified (E55.9) Active confirmed Vital Signs Blood pressure diastolic 85 mm Hg 06/03/2024 Oximetry 100 % 06/03/2024 Height 67 in 06/03/2024 Blood pressure systolic 136 mm Hg 06/03/2024 Weight 195.6 lbs 06/03/2024 BMI 30.63 kg/m2 06/03/2024 Encounters Encounter Location Date Provider Diagnosis [facility] [address] [address] 06/03/2024 Diamond Argueta Hypertrophy of nasal turbinates [...] home. She also volunteers at a dog prison. - Skin testing was performed to histamine [...] Insured Coverage Start Date Coverage End Date [facility] [address] [address] [place] [address] [id number] Mela Gomez Self - patient is the insured 4 Medical (General) History Hospitalization History Reason Date(Month/Year) covid 05/01/2020
--- NOTE | 2025-02-10 12:58 | ECG_ITS ---
Test Date: 2025-02-10 13:52:53 Measurements Intervals [place] Rate: 91 P: 42 TX: 141 QRS: 46 QRSD: 78 T: 38 QT: 352 QTc: 433 Interpretive Statements SINUS RHYTHM LOW QRS VOLTAGE IN PRECORDIAL LEADS BORDERLINE ST-T WAVE ABNORMALITY- ANTERIOR LEADS BORDERLINE ECG No previous ECG available for comparison Electronically Signed On 02-10-2025 13:58:21 CDT by Buck Mills D.O.
--- NOTE | 2025-02-10 12:59 | ED.SOB ---
HPI - SOB/Dyspnea General Chief Complaint: Shortness of Breath/Dyspnea <Sarah Villarreal APRN - Last Filed: 02/10/25 13:01> Stated Complaint: SOB, poss low H&H <Sarah Villarreal APRN - Last Filed: 02/10/25 13:01> Time Seen by Provider: 02/10/25 12:55 <Sarah Villarreal APRN - Last Filed: 02/10/25 13:01> Focused HPI: Patient is a 54-year-old female who presents to the ER with shortness of breath and heart palpitations. She reports she is supposed to get a hysterectomy, and went in yesterday for preop blood work. Patient reports her OBGYN looked at her lab values and advised her to come to the ER. She reports her shortness of breath and heart palpitations started near the end of December, but have progressively gotten worse. Patient also endorses right shoulder pain, right forearm pain and midsternal chest pain. GENERAL: Well-appearing, well-nourished, and in no acute distress. HEAD: Normocephalic, atraumatic. CHEST: Clear to auscultation. ?No respiratory distress. HEART: Tachycardia, regular NEURO: ?Alert and oriented x3. Patient screened in triage and initial orders placed.? ?Additional care and disposition to be based upon?diagnostic testing and treatment. <Sarah Villarreal APRN - Last Filed: 02/10/25 13:01> History of Present Illness HPI Narrative: Agree with HPI <Edward Harvey MD - Last Filed: 02/10/25 21:54> Related Data Home Medications: Home Medications ?Medication ?Instructions ?Recorded ?Confirmed ?Last Taken ?Type ferrous sulfate 325 mg (65 mg 325 mg PO DAILY 06/11/23 02/05/25 12/15/23 History iron) tablet (Iron (ferrous sulfate)) loratadine 10 mg tablet (Claritin) 10 mg PO DAILY 06/11/23 02/05/2524 History <Saarh Villarreal APRN - Last Filed: 02/10/25 13:01> Allergies/Adverse Reactions: Allergies Allergy/AdvReac Type Severity Reaction Status Date / Time Penicillins Allergy Intermediate RASH Verified 02/10/25 12:56 codeine AdvReac Intermediate NAUSEA Verified 02/10/25 12:56 <Sarah Villarreal APRN - Last Filed: 02/10/25 13:01> Review of Systems Review of Systems: Gen.: Denies fevers or chills. Fatigue Eyes: Denies eye pain or visual change ENT: Denies congestion Respiratory: Shortness of breath, intermittent chest pain CV: Denies chest pain or palpitations GI: Denies abdominal pain nausea, emesis or diarrhea denies burning, urgency, frequency or hematuria Musculoskeletal: Denies back pain or muscle pain Neuro: Denies numbness, tingling, weakness or focal weakness Skin: Denies rash Except as documented, all other systems reviewed and negative <Edward Harvey MD - Last Filed: 02/10/25 21:54> PMFSH Past Medical History Medical History: Medical History Skin cancer Anemia Fibroids Abnormal uterine bleeding <Sarah Villarreal APRN - Last Filed: 02/10/25 13:01> Surgical History Surgical History: Surgical History H/O colonoscopy H/O LEEP History of endometrial ablation History of bilateral tubal ligation Hx of cholecystectomy H/O thyroidectomy <Sarah Villarreal APRN - Last Filed: 02/10/25 13:01> Family History Family History: Family History Father COPD (chronic obstructive pulmonary disease) Mother Heart attack Breast cancer Unknown Breast cancer <Sarah Villarreal APRN - Last Filed: 02/10/25 13:01> Social History Social History: Social History Smoking status: Never smoker Alcohol intake: current Alcohol use details: occasional Substance use: never Substance use type: does not use Living arrangements: with family Occupation/Education: occupation 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 CARDIOVASCULAR: Regular rate and rhythm without murmurs rubs or gallops. ABDOMINAL: Soft, nontender, nondistended, no rebound or guarding MUSCULOSKELETAl: Moves all extremities. No clubbing, cyanosis or edema. NEURO: Awake and alert. Following commands, speech normal, no focal deficits SKIN:: Warm, dry. No rashes lesions or abrasions PSYCHIATRIC: Normal affect/mood, <Edward Harvey MD - Last Filed: 02/10/25 21:54> Course Vital Signs Vital signs: Vital Signs Temperature 98.1 F 02/10/25 12:52 Pulse Rate 96 02/10/25 12:52 Respiratory Rate 16 02/10/25 12:52 Blood Pressure 147/95 H 02/10/25 12:52 Pulse Oximetry 100 02/10/25 12:52 Oxygen Delivery Room Air 02/10/25 12:52 Temperature 98.1 F 02/10/25 12:52 Pulse Rate 81 02/10/25 18:15 Respiratory Rate 17 02/10/25 18:15 Blood Pressure 131/84 02/10/25 18:15 Pulse Oximetry 99 02/10/25 18:15 Oxygen Delivery Room Air 02/10/25 14:01 <Sarah Villarreal, INFECTION PREVENTIONIST - Last Filed: 02/10/25 13:01> Vital Signs Temperature 98.1 F 02/10/25 12:52 Pulse Rate 96 02/10/25 12:52 Respiratory Rate 16 02/10/25 12:52 Blood Pressure 147/95 H 02/10/25 12:52 Pulse Oximetry 100 02/10/25 12:52 Oxygen Delivery Room Air 02/10/25 12:52 Temperature 98.1 F 02/10/25 12:52 Pulse Rate 81 02/10/25 18:15 Respiratory Rate 17 02/10/25 18:15 Blood Pressure 131/84 02/10/25 18:15 Pulse Oximetry 99 02/10/25 18:15 Oxygen Delivery Room Air 02/10/25 14:01 <Edward Harvey MD - Last Filed: 02/10/25 21:54> MDM - SOB/Dyspnea MDM Narrative Medical decision making narrative: 54-year-old female presenting for fatigue, shortness breath, chest pain. Patient does have a history of fibroid uterus with anemia related to that. She is currently scheduled for hysterectomy next week. Initial vitals stable. Heart and lungs clear. She was mildly pale on examination. She was anemic to 8.2 which was improved from prior at 7.5. D-dimer was elevated so CTA chest was obtained. CTA showed the no evidence of PE. Suspect patient's symptoms are related to her anemia. Patient is scheduled for operative intervention next week. I advised her to follow up with her surgeon's office tomorrow to discuss her symptoms. Patient was agreeable to plan. Given strict return precautions. <Edward Harvey MD - Last Filed: 02/10/25 21:54> Differential Diagnosis Differential diagnosis: Likely pulmonary embolism and other (anemia, ACS) <Edward Harvey MD - Last Filed: 02/10/25 21:54> Medical Records Attestation: I reviewed the patient's medical records. <Edward Harvey MD - Last Filed: 02/10/25 21:54> Lab Data Attestation: I reviewed the patient's lab results. <Edward Harvey MD - Last Filed: 02/10/25 21:54> Result diagrams: 02/10/25 13:51 02/10/25 13:51 <Sarah Villarreal APRN - Last Filed: 02/10/25 13:01> Labs: Lab Results 02/10/25 Range/Units 13:51 WBC 4.1 L (4.5-10.0) K/mm3 RBC 3.95 L (4.2-5.4) M/mm3 Hgb 8.2 L (12.0-15.0) g/dL Hct 28.8 L (37.0-47.0) % MCV 72.9 L (80-100) fl MCH 20.8 L (26-34) pg MCHC 28.5 L (32-36) g/dl RDW 16.3 H (11.5-14.5) % Plt Count 348 (150-375) k/mm3 MPV 9.6 (7.4-10.4) fl Immature Gran % (Auto) 0.2 (0-0.5) % Neut % (Auto) 45.9 (45.5-73.1) % Lymph % (Auto) 42.6 (18.3-44.2) % [place] % (Auto) 8.1 (2.6-8.5) % Eos % (Auto) 2.5 (0-4.4) % Baso % (Auto) 0.7 (0.2-1.2) % Lymph # (Auto) 1.74 (0.9-3.2) K/mm3 [place] # (Auto) 0.3 (0.1-0.6) K/mm3 Eos # (Auto) 0.1 (0-0.3) K/mm3 Baso # (Auto) 0.0 (0.0-0.1) K/mm3 Abs Immat Gran (auto) 0.01 (0.00-0.031) K/mm3 Absolute Neuts (auto) 1.9 (1.3-6.7) K/mm3 Absolute Nucleated RBC 0.000 (0.0-0.012) K/mm3 Band Neutrophils % 0 (0-6) % Nucleated RBC % 0.0 (0.0-0.2) % Platelet Estimate Adequate (Adequate) Hypochromasia 1+ Anisocytosis 2+ Microcytosis 1+ (NORMAL) Schistocytes None seen PT 13.7 (11.1-14.7) Seconds INR 1.0 APTT 30.1 (22.3-36.8) Seconds D-Dimer 0.59 H (<0.48) ug/mL Sodium 135 L (137-145) mmol/L Potassium 4.3 (3.4-5.0) mmol/L Chloride 105 (98-107) mmol/L Carbon Dioxide 24 (22-30) mmol/L Anion Gap 6 (4-12) mmol/L BUN 12 (7-17) mg/dL Creatinine 0.70 (0.7-1.0) mg/dL Estim Creat Clear Calc 94 ml/min Estimated GFR > 60 (59 - ) Glucose 96 (65-110) mg/dL Calcium 8.9 (8.4-10.2) mg/dL Magnesium 1.9 (1.6-2.3) mg/dL Total Bilirubin 0.3 (0.2-1.3) mg/dL AST 24 (14-36) U/L ALT 16 (6-35) U/L Alkaline Phosphatase 62 (38-126) U/L Troponin I < 0.012 (0.000-0.034) ng/mL NT-Pro-B Natriuret Pep 50 (19.9-100) pg/mL Total Protein 7.3 (6.3-8.2) g/dL Albumin 4.2 (3.5-5.1) g/dL Urine Color Yellow (Yellow) Urine Appearance Clear (Clear) Urine pH 6.5 (5.0-9.0) Ur Specific [place] 1.015 (1.001-1.035) Urine Protein Negative (Negative) mg/dL Urine Glucose (UA) Negative (Negative) mg/dL Urine Ketones Negative (Negative) mg/dL Ur Blood (Man) Negative (Negative) Urine Nitrate Negative (Negative) Urine Bilirubin Negative (Negative) Urine Urobilinogen 0.2 (<2.0) mg/dL Leukocyte Esterase Rfl Negative (Negative) GALILEO/UL Blood Type O Positive Antibody Screen Negative <Sarah Villarreal, INFECTION PREVENTIONIST - Last Filed: 02/10/25 13:01> Lab Results 02/10/25 Range/Units 13:51 WBC 4.1 L (4.5-10.0) K/mm3 RBC 3.95 L (4.2-5.4) M/mm3 Hgb 8.2 L (12.0-15.0) g/dL Hct 28.8 L (37.0-47.0) % MCV 72.9 L (80-100) fl MCH 20.8 L (26-34) pg MCHC 28.5 L (32-36) g/dl RDW 16.3 H (11.5-14.5) % Plt Count 348 (150-375) k/mm3 MPV 9.6 (7.4-10.4) fl Immature Gran % (Auto) 0.2 (0-0.5) % Neut % (Auto) 45.9 (45.5-73.1) % Lymph % (Auto) 42.6 (18.3-44.2) % [place] % (Auto) 8.1 (2.6-8.5) % Eos % (Auto) 2.5 (0-4.4) % Baso % (Auto) 0.7 (0.2-1.2) % Lymph # (Auto) 1.74 (0.9-3.2) K/mm3 [place] # (Auto) 0.3 (0.1-0.6) K/mm3 Eos # (Auto) 0.1 (0-0.3) K/mm3 Baso # (Auto) 0.0 (0.0-0.1) K/mm3 Abs Immat Gran (auto) 0.01 (0.00-0.031) K/mm3 Absolute Neuts (auto) 1.9 (1.3-6.7) K/mm3 Absolute Nucleated RBC 0.000 (0.0-0.012) K/mm3 Band Neutrophils % 0 (0-6) % Nucleated RBC % 0.0 (0.0-0.2) % Platelet Estimate Adequate (Adequate) Hypochromasia 1+ Anisocytosis 2+ Microcytosis 1+ (NORMAL) Schistocytes None seen PT 13.7 (11.1-14.7) Seconds INR 1.0 APTT 30.1 (22.3-36.8) Seconds D-Dimer 0.59 H (<0.48) ug/mL Sodium 135 L (137-145) mmol/L Potassium 4.3 (3.4-5.0) mmol/L Chloride 105 (98-107) mmol/L Carbon Dioxide 24 (22-30) mmol/L Anion Gap 6 (4-12) mmol/L BUN 12 (7-17) mg/dL Creatinine 0.70 (0.7-1.0) mg/dL Estim Creat Clear Calc 94 ml/min Estimated GFR > 60 (59 - ) Glucose 96 (65-110) mg/dL Calcium 8.9 (8.4-10.2) mg/dL Magnesium 1.9 (1.6-2.3) mg/dL Total Bilirubin 0.3 (0.2-1.3) mg/dL AST 24 (14-36) U/L ALT 16 (6-35) U/L Alkaline Phosphatase 62 (38-126) U/L Troponin I < 0.012 (0.000-0.034) ng/mL NT-Pro-B Natriuret Pep 50 (19.9-100) pg/mL Total Protein 7.3 (6.3-8.2) g/dL Albumin 4.2 (3.5-5.1) g/dL Urine Color Yellow (Yellow) Urine Appearance Clear (Clear) Urine pH 6.5 (5.0-9.0) Ur Specific [place] 1.015 (1.001-1.035) Urine Protein Negative (Negative) mg/dL Urine Glucose (UA) Negative (Negative) mg/dL Urine Ketones Negative (Negative) mg/dL Ur Blood (Man) Negative (Negative) Urine Nitrate Negative (Negative) Urine Bilirubin Negative (Negative) Urine Urobilinogen 0.2 (<2.0) mg/dL Leukocyte Esterase Rfl Negative (Negative) GALILEO/UL Blood Type O Positive Antibody Screen Negative <Edward Harvey MD - Last Filed: 02/10/25 21:54> Imaging Data Radiologist's impression: Impressions Chest X-Ray 02/10/25 14:28 IMPRESSION: 1. No acute cardiopulmonary disease. Chest CTA 02/10/25 17:16 IMPRESSION: 1. No pulmonary embolism identified. 2. Small groundglass opacities in the lower lobes. Differential includes is not limited to atelectasis or an inflammatory/infectious process. Findings as above. <Edward Harvey MD - Last Filed: 02/10/25 21:54> ECG Data EKG #1: Attestation: I personally reviewed and interpreted this ECG as follows: <Edward Harvey MD - Last Filed: 02/10/25 21:54> ECG completion date: 02/10/25 <Edward Harvey MD - Last Filed: 02/10/25 21:54> ECG completion time: 13:52 <Edward Harvey MD - Last Filed: 02/10/25 21:54> Prior ECG tracings: not available for review <Edward Harvey MD - Last Filed: 02/10/25 21:54> EKG Interpretation: normal rate, sinus rhythm, no ectopy, no ST changes, normal QRS and no acute changes <Edward Harvey MD - Last Filed: 02/10/25 21:54> Discharge Plan Discharge Clinical Impression: Anemia, Menometrorrhagia, Fibroid uterus <Sarah Villarreal APRN - Last Filed: 02/10/25 13:01> Patient Disposition: Home <Sarah Villarreal APRN - Last Filed: 02/10/25 13:01> Condition: Stable <Sarah Villarreal APRN - Last Filed: 02/10/25 13:01> Instructions: Antibiotic Form, Anemia (ED) <Sarah Villarreal APRN - Last Filed: 02/10/25 13:01> Patient Language: Cymraes <Sarah Villarreal APRN - Last Filed: 02/10/25 13:01> Prescriptions: No Action ferrous sulfate [Iron (ferrous sulfate)] 325 mg (65 mg iron) Tablet 325 mg PO DAILY Patient Comments: says takes 1 tab bid. loratadine [Claritin] 10 mg Tablet 10 mg PO DAILY ibuprofen 600 mg tablet 600 mg PO Q6H PRN (Reason: pain) Qty: 14 0RF <Sarah Villarreal APRN - Last Filed: 02/10/25 13:01> Follow-up/Referrals: Pee,MD Daniel [Primary Care Provider] - Jake Galeana MD [Physician] - 1 Day <Sarah Villarreal APRN - Last Filed: 02/10/25 13:01>
[2025-02-10 14:04] LABS: Hematocrit 28.8 % (37.0-47.0); Hemoglobin 8.2 g/dL (12.0-15.0); Immature Granulocyte Percent A 0.2 % (0-0.5); Lymphocytes Absolute Auto 1.74 K/mm3 (0.9-3.2); Mean Corpuscular HGB Conc 28.5 g/dl (32-36); Mean Corpuscular Hemoglobin 20.8 pg (26-34); Mean Corpuscular Volume 72.9 fl (80-100); Nucleated Red Blood Cells Absolute Auto 0.000 K/mm3 (0.0-0.012); Nucleated Red Blood Cells Perc 0.0 % (0.0-0.2); Platelet Count Result 348 k/mm3 (150-375); Red Blood Count 3.95 M/mm3 (4.2-5.4); White Blood Count 4.1 K/mm3 (4.5-10.0)
[2025-02-10 14:13] LABS: Alanine Aminotransferase 16 U/L (6-35); Albumin Level 4.2 g/dL (3.5-5.1); Alkaline Phosphatase 62 U/L (38-126); Anion Gap 6 mmol/L (4-12); Aspartate Amino Transferase 24 U/L (14-36); Bilirubin,Total 0.3 mg/dL (0.2-1.3); Blood Urea Nitrogen 12 mg/dL (7-17); Calcium 8.9 mg/dL (8.4-10.2); Carbon Dioxide 24 mmol/L (22-30); Chloride 105 mmol/L (98-107); Estimated CRCL calculation 94 ml/min; Estimated Glomerular Filt Rate > 60; Glucose 96 mg/dL (65-110); Magnesium 1.9 mg/dL (1.6-2.3); Potassium 4.3 mmol/L (3.4-5.0); Sodium 135 mmol/L (137-145); Total Protein 7.3 g/dL (6.3-8.2)
[2025-02-10 14:14] LABS: INR 1.0; Prothrombin Time 13.7 Seconds (11.1-14.7)
[2025-02-10 14:15] LABS: Partial Thromboplastin Time 30.1 Seconds (22.3-36.8)
[2025-02-10 14:22] LABS: Add Urine Microscopic? NO; Appearance Urine Clear (Clear); Glucose Urine UA Negative (Negative); Leukocyte Esterase Ur Negative LEU/UL (Negative); Nitrate Urine Negative (Negative); Specific Grav Ur 1.015 (1.001-1.035)
[2025-02-10 14:25] LABS: NT Pro B Type Natriuretic Pept 50 pg/mL (19.9-100); Troponin I < 0.012 ng/mL (0.000-0.034)
[2025-02-10 14:35] LABS: Band Neutrophils Percent 0 % (0-6); Schistocytes None Seen
[2025-02-10 14:36] LABS: Anisocytosis 2+; Hypochromasia 1+; Microcytosis 1+ (NORMAL)
[2025-02-10 16:02] VITALS: BP 127/94; PULSE 87; RESP 17; O2SAT 100
[2025-02-10 18:15] VITALS: BP 131/84; PULSE 81; RESP 17; O2SAT 99
== END 2025-02-10 18:16 | disposition home or self-care (01) ==
PROVIDERS: Registered Nurse; Emergency Provider Student in an Organized Health Care Education/Training Program; PCP Internal Medicine
DX: D64.9 Anemia, unspecified (principal); N92.1 Excessive and frequent menstruation with irregular cycle; D25.9 Leiomyoma of uterus, unspecified; Z85.828 Personal history of other malignant neoplasm of skin
CPT/HCPCS: 36415; 71045; 71275; 80053; 81003; 83735; 83880; 84484; 85025; 85380; 85610; 85730; 86850; 86900; 86901; 93005; 99284; Q9967

== ENCOUNTER 2025-02-17 04:32 | Day surgery (SDC) | payer OTHER, SELFPAY ==
--- OUTSIDE RECORDS SUMMARY | 2024-06-10 12:30 | XMS_ITS ---
Author Organization [facility] [place] ([address]) Address [address] [place] [address] Care Team Providers Care Chief Growth Officer Name Role Phone Daniel Glasgow Primary Care Provider UnavailDiamond Velázquez Unavailable [phone] REASON FOR VISIT Skin testing Encounters Encounter Location Date Provider Diagnosis [facility] [address] [place] [address] 06/10/2024 Diamond Argueta Plan Of Treatment No Information Progress Notes * Go PARKOB:[birth year] (54 yo F)Acc No.[id number]:06/10/2024 Skin Testing Patient: Mela MOORE Provider: WHITNEY Dumas :1970 A ge:53 Y S ex:Female Date:06/10/2024 Address:[facility] [address] [facility] Pcp:Daniel Glasgow Subjective: * Chief Complaints: * 1 . Skin testing. * Medical History: Objective: * Vitals: Assessment: Plan: * Treatment: * Billing Information: * Visit Code: * Procedure Codes: * Electronic signature of WHITNEY Bell on 02/17/2025 at 04:35 AM CDT Sign off status: Pending * Provider: WHITNEY Dumas Date: 1 08/11/2023 Generated for Pamella sherman/Sean/Tranitting on: 0 02/17/2025 04:35 AM CDT
[2025-02-05 12:37] VITALS: BMI 31.4
--- NOTE | 2025-02-05 12:45 | PC.NURSE ---
Report to the Outpatient Waiting Room, entrance under the green pavilion located off [facility], at time _1000_ on date _[id number]_. Planned Procedure Time: _1200_.? Time changes happen often and if your time is changed the preop area will call you the afternoon before. - You and your visitor will be asked to self-screen and do not enter if you have any COVID symptoms. Please call surgeon if you need to reschedule. - A mask is optional within the hospital at this time. Patients may have clear liquids (water, carbonated beverages, clear teas, apple juice) until 3 hours prior to surgery with a maximum of 20 ounces. - No food from midnight until time of surgery and no smoking, or chewing tobacco (or any form of nicotine). No chewing gum, candy or mints. Take only the following medications with a SIP of water on the morning of surgery: __None DO NOT STOP ANY OF YOUR OTHER PRESCRIPTION MEDICATIONS PRIOR TO SURGERY EXCEPT THE FOLLOWING Hold all vitamins and supplements for 3 days per anesthesiologist. Medications to discontinue per physician ___Please ask Dr Galeana's office if need to hold Ibuprofen. Acetaminophen is OK to take if needed. Date to take last dose Please no make-up, nail bahamian, hairspray, perfume, deodorant, or body powder the day of surgery.? No jewelry (including any body piercings) or valuables the day of surgery, leave them at home.? Please take a shower or bath the night before, or the morning of, surgery with an antibacterial soap.? Wear comfortable, loose fitting clothing.? - Jewelry must be removed prior to entering the operating room.? Rings and piercings that are not removed may be cut off. - The hospital will not accept responsibility for valuables.? - Please leave all valuables, including medications, at home the day of surgery. If you are going home after surgery, a licensed milk tanker driver must drive you home.? - NO public transportation without another adult if you receive anesthesia. - We recommend that an adult stay with you for 24 hours following discharge. - We also recommend that you do not drive, make important decision, drink alcoholic beverages, or take any drugs that were not prescribed by your health care provider for at least 24 hours after your discharge time. Follow any additional instructions given to you from your surgeon. Telephone instructions given to _Denise___and asked if any additional questions and then verbalized understanding. Patient advised to call surgeon office or pre surgery nurse liaison [phone] if any additional questions.
[2025-02-17] VITALS (10 sets, daily range): BP systolic 107–137; BP diastolic 58–93; PULSE 72–92; RESP 12–18; TEMP 32.2–36.6; O2SAT 99–100
--- OUTSIDE RECORDS SUMMARY | 2025-02-17 04:35 | XMS_ITS | Clinical Summary ---
Author Organization [facility] Address [address] [place] [address] Care Team Providers Care Printmaker Name Role Phone Unavailable Primary Care Provider [...]
--- OUTSIDE RECORDS SUMMARY | 2025-02-17 04:35 | XMS_ITS | Encounter Summary ---
Author Organization [facility] Address [address] [facility] [place] [address] Care Team Providers Care Acquisition Marketing Manager Name Role Phone Daniel Glasgow MD Primary Care Provider [phone] Encounter Details Date Type Department Care Team (Late st Contact Info) Description 09/03/2019 Lab Requisition [facility] Care DermPath Lab [address] [facility], [place] [id number] Mira Saldivar DO [address] [place] [address] Social History Tobacco Use Types Packs/Day Years Used Date Smoking Tobacco: Never Smokeless Tobacco: Never Alcohol Use Standard Drinks/Week Comments Yes 0 (1 standard drink = 0.6 oz pur e alcohol) socially Comments No Sex and Gender Information Value Date Recorded Sex Assigned at Not on file 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 Gender Identity Not on file Sexual Orientation Not on file documented as of this encounter Plan of Treatment Not on file documented as of this encounter Procedures Procedure Name Priority Date/Time Associated Diagnosis Comments DERMATOPATHOLOGY Routine 09/02/2019 12:0 0 AM MERCHANDISING EXECUTION ASSOCIATE documented in this encounter Results * DERMATOPATHOLOGY (09/02/2019 12:00 AM MERCHANDISING EXECUTION ASSOCIATE) Case Report Dermatopathology Report Case: [id number] Authorizing Provider: Mira Saldivar DO Collected: 09/02/2019 12:00 AM Ordering Location: [facility] DermPath Lab Received: 09/03/2019 06:21 AM Pathologist: Maribel Cervantes MD Specimens: A) - Skin, right upper back B) - Skin, right mid back 0 12:[address] [facility] DERMATOPATHOLOGY LABORATORY Final Diagnosis Specimen A. SKIN, right upper back: LICHEN PLANUS-LIKE KERATOSIS (BENIGN LICHENOID KERATOSIS) (L82.1) Specimen B. SKIN, right mid back: SUPERFICIAL AND MID PERIVASCULAR LYMPHOCYTIC INFILTRATE WITH EOSINOPHILS (T63.484A) (see microscopic description and comment) 0 12:[address] [facility] DERMATOPATHOLOGY LABORATORY at 1209 MERCHANDISING EXECUTION ASSOCIATE Clinical History A: LPLK vs DF R/O atypia. B: Persistent bite R/O NMSC. 0 12:[address] [facility] DERMATOPATHOLOGY LABORATORY Gross Description Specimen A: Received is one formalin filled container labeled with the patient's name and designated right upper back. The specimen consists of a shave measuring 1r7f1ol. Jar 0. Specimen B: Received is one formalin filled container labeled with the patient's name and designated right mid back. The specimen consists of a shave measuring 9v0m2br. Jar 0. 0 12:[address] [facility] DERMATOPATHOLOGY LABORATORY Microscopic Description Specimen A. [...] of arthropod bite reaction. 0 12:[address] [facility] DERMATOPATHOLOGY LABORATORY Disclaimer An external and [...] purposes. Billing Codes Specimen Charges Stain Charges 53545 25546 1 1 0 12:09 PM MERCHANDISING EXECUTION ASSOCIATE DERMATOPATHOLOGY LABORATORY Embedded Images 0 12:09 PM MERCHANDISING EXECUTION ASSOCIATE DERMATOPATHOLOGY LABORATORY Pathology/Cytology TISSUE SPECIMEN FROM SKIN / Unknown 09/02/2019 09/03/2019 6:21 AM MERCHANDISING EXECUTION ASSOCIATE Miscellaneous samples (specimen) TISSUE SPECIMEN FROM SKIN / Unknown 09/02/2019 09/03/2019 6:21 AM MERCHANDISING EXECUTION ASSOCIATE Mira Saldivar DO LAB - PATHOLOGY/CYTOLOGY ORDERABLES Final Result DERMATOPATHOLOGY LABORATORY [facility] - Department of Dermatology [address] [place] [address] [address] [phone] documented in this encounter Visit Diagnoses Not on filedocumented in this encounter Care Teams Acquisition Marketing Manager Relationship Specialty Start Date End Date Daniel Glasgow MD PCP - General Internal Medicine 04/19/17 documented as of this encounter
--- OUTSIDE RECORDS SUMMARY | 2025-02-17 04:35 | XMS_ITS | Patient Health Record ---
Author Organization [facility] [employer] [facility] ([address]) Address [address] [place] [address] Care Team Providers Care R D Internship Name Role Phone Daniel Glasgow Primary Care Provider Diamond Caba Unavailable [phone] Allergies Allergen (clinical drug ingredient) Drug/Non Drug [...] W/U Status Risk Notes Problem Chronic rhinitis (91307046) Chronic rhinitis (J31.0) Active confirmed Problem Chronic sinusitis (94331070) Chronic sinusitis, unspecified (J32.9) Active confirmed Problem Vitamin D deficiency (55189668) Vitamin D deficiency, unspecified (E55.9) Active confirmed Vital Signs Blood pressure diastolic 85 mm Hg 06/03/2024 Oximetry 100 % 06/03/2024 Height 67 in 06/03/2024 Blood pressure systolic 136 mm Hg 06/03/2024 Weight 195.6 lbs 06/03/2024 BMI 30.63 kg/m2 06/03/2024 Encounters Encounter Location Date Provider Diagnosis [facility] [address] [address] 06/03/2024 Diamond Argueta Hypertrophy of nasal turbinates [...] home. 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 - Skin testing was performed to histamine [...] Insured Coverage Start Date Coverage End Date [facility] [address] [address] [place] [address] [id number] Mela Gomez Self - patient is the insured 4 Medical (General) History Hospitalization History Reason Date(Month/Year) covid 05/01/2020
--- OUTSIDE RECORDS SUMMARY | 2025-02-17 04:35 | XMS_ITS | Clinical Summary ---
Author Organization [facility] Address [address] [facility] [place] [address] Care Team Providers Care Concrete Pavement Installer Name Role Phone Daniel Glasgow MD Primary Care Provider Source Comments [facility],non-owned Affiliates and Associated Physician Practices is amultiple site organization consisting of ambulatory clinics and hospital sitesin [place], [place], [place] and [place]. This disclosure is being madepursuant to the Care Everywhere program and may not contain all information available regarding this patient. Last updated 18.[facility] Allergies Active Allergy Reactions Criticality Noted Date Comments Codeine GI Discomfort 07/18/2011 Penicillins Rash Low 07/18/2011 Medications * Be aware that medications may not be up to date on this document. Alwaysverify current medications with the patient. loratadine (CLARITIN) 10 MG tablet Take 10 mg by mouth once daily. Active fluticasone propionate (FLONASE) 50 MCG/ACT nasal sprayIndication s:Acute ethmoidal sinusitis, recurrence not specified [place] 2 sprays into each nostril once daily 1 bottles 7 Active Additional Information Patient not taking.Reported on 03/16/2019 triamcinolone acetonide (KENALOG) 0.1 % creamIndication s:Scabies Apply to affected area 3 times daily 60 g 9 Active Family History Medical History Relation Name Comments Blood Disease Father IT-high platle ts Heart Disease Mother DE Relation Name Status Comments Father Mother Social History Tobacco Use Types Packs/Day Years Used Date Smoking Tobacco: Never Smokeless Tobacco: Never Alcohol Use Standard Drinks/Week Comments Yes 0 (1 standard drink = 0.6 oz pur e alcohol) socially Comments No Sex and Gender Information Value Date Recorded Sex Assigned at Not on file 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 Gender Identity Not on file Sexual Orientation [...] patient's age to complete this topic Insurance [facility] Address: [facility] [address] [place] [address] T AET SELF PAY NO INSURANCE Member Subscriber Plan / Payer (Ef fective for All Dates) Name:Mela Park Member ID:Not on file Relation to Subscriber:Not on file Name:MELA PARK Subscriber ID:Not on file Address: [address] [place] [address] [place] [address] Payer ID:Not on file Group ID:Not on file Type:Self Pay Address: [place], [place] * Guarantor: PATRICIAMELA Account Type Relation to Patient Date of Phone Billing Address Personal/Family [address] [place] [address] [place] [address] [employer] SELF PAY NO INSURANCE Member Subscriber Plan / Payer (Ef fective for All Dates) Name:Mela Park Member ID:Not on file Relation to Subscriber:Not on file Name:MELA PARK Subscriber ID:Not on file Address: [address] [place] [address] [place] [address] Payer ID:Not on file Group ID:Not on file Type:Self Pay Address: [place], [place] * Guarantor: TANGELA PARKISE Account Type Relation to Patient Date of Phone Billing Address Personal/Family [facility] [address] [place] [address] AET[employer] SELF PAY NO INSURANCE Member Subscriber Plan / Payer (Ef fective for All Dates) Name:Mela Park Gio Member ID:Not on file Relation to Subscriber:Not on file Name:ARIESVETOTANGELA MurphyMELA Subscriber ID:Not on file Address: [facility] [address] [place] [address] Payer ID:Not on file Group ID:Not on file Type:Self Pay Address: [place], [place] * Guarantor: MELA PARK Account Type Relation to Patient Date of Phone Billing Address Personal/Family [facility] [place] [address] [employer] SELF PAY NO INSURANCE Member Subscriber Plan / Payer (Ef fective for All Dates) Name:Mela Park Gio Member ID:Not on file Relation to Subscriber:Not on file Name:MELA PARK Subscriber ID:Not on file Address: [facility] [place] [address] Payer ID:Not on file Group ID:Not on file Type:Self Pay Address: [place], [place] Care Teams Concrete Pavement Installer Relationship Specialty Start Date End Date Daniel Glasgow MD PCP - General Internal Medicine 04/19/17
--- OUTSIDE RECORDS SUMMARY | 2025-02-17 04:35 | XMS_ITS | Encounter Summary ---
Author Organization [facility] Address [address] [place] [address] Care Team Providers Care Chainman Name Role Phone Daniel Glasgow MD Primary Care Provider [phone] Encounter Details Date Type Department Care Team (Late st Contact Info) Description 10/14/2023 Lab Requisition [facility] - DermPath Lab [address] [facility], [place] [phone] Edi Cervantes Jr., MD [address] [facility] [address] [place] [address] Social History Tobacco Use Types Packs/Day Years Used Date Smoking Tobacco: Never Smokeless Tobacco: Never Alcohol Use Standard Drinks/Week Comments Yes 0 (1 standard drink = 0.6 oz pur e alcohol) socially Comments No Sex and Gender Information Value Date Recorded Sex Assigned at Not on file 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 Gender Identity Not on file Sexual Orientation Not on file documented as of this encounter Plan of Treatment Not on file documented as of this encounter Procedures Procedure Name Priority Date/Time Associated Diagnosis Comments DERMATOPATHOLOGY Routine 10/11/2023 3:33 AM CDT documented in this encounter Results * DERMATOPATHOLOGY (10/11/2023 3:33 AM CDT) Case Report Dermatopathology Report Case: [id number] Authorizing Provider: Edi Cervantes Jr., MD Collected: 10/11/2023 03:33 AM Ordering Location: [facility] - Received: 10/14/2023 02:11 PM DermPath Lab [...] characteristic determined by the Dermatopathology Laboratory at [facility], directed by Dr. Anamika Cervantes. These tests need not be, and therefore are not, approved by the [place] Food and Drug Administration. The tests are used for clinical purposes. Billing Codes Specimen Charges Stain Charges 32260 90101 1 1 4 3:09 PM CDT DERMATOPATHOLOGY [...] DERMATOPATHOLOGY LABORATORY [facility] - Department of Dermatology [facility] Specialized Medicine [address] [place] [address], [address] [phone] documented in this encounter Visit Diagnoses Not on filedocumented in this encounter Care Teams Chainman Relationship Specialty Start Date End Date Daniel Glasgow MD PCP - General Internal Medicine 04/19/17 documented as of this encounter
--- OUTSIDE RECORDS SUMMARY | 2025-02-17 04:35 | XMS_ITS | Clinical Summary ---
Author Organization [facility] Address [address] [place] [id number] Care Team Providers Care Guest Relations Coordinator Name Role Phone Unavailable Primary Care Provider [...]
--- OUTSIDE RECORDS SUMMARY | 2025-02-17 04:35 | XMS_ITS | Encounter Summary ---
Author Organization [facility] Address [address] [facility] [place] [address] Care Team Providers Care Property Management Accountant Name Role Phone Daniel Glasgow MD Primary Care Provider [phone] Encounter Details Date Type Department Care Team (Late st Contact Info) Description 11/25/2023 Lab Requisition [facility] - DermPath Lab [address] [facility], [place] [phone] Edi Cervantes Jr., MD [address] [facility] [address] [place] [address] Social History Tobacco Use Types Packs/Day Years Used Date Smoking Tobacco: Never Smokeless Tobacco: Never Alcohol Use Standard Drinks/Week Comments Yes 0 (1 standard drink = 0.6 oz pur e alcohol) socially Comments No Sex and Gender Information Value Date Recorded Sex Assigned at Not on file Legal Sex Female 1:01 PM RN SPINE Gender Identity Not on file Sexual Orientation Not on file documented as of this encounter Plan of Treatment Not on file documented as of this encounter Procedures Procedure Name Priority Date/Time Associated Diagnosis Comments DERMATOPATHOLOGY Routine 11/21/2023 3:33 AM CDT documented in this encounter Results * DERMATOPATHOLOGY (11/21/2023 3:33 AM CDT) Case Report Dermatopathology Report Case: [id number] Authorizing Provider: Edi Cervantes Jr., MD Collected: 11/21/2023 03:33 AM Ordering Location: [facility] - Received: 11/25/2023 09:39 AM [...] abdomen.The specimen consists of an ellipse measuring 53v18h9 mm and is oriented with the suture [...] characteristic determined by the Dermatopathology Laboratory at [facility], directed by Dr. Anamika Cervantes. These tests need not be, and therefore are not, approved by the [place] Food and Drug Administration. The tests are used for clinical purposes. Billing Codes Specimen Charges Stain Charges 24081 1 05/29/202 4 3:08 PM CDT DERMATOPATHOLOGY LABORATORY Embedded Images 4 3:08 PM CDT DERMATOPATHOLOGY LABORATORY Pathology/Cytolo gy TISSUE SPECIMEN FROM SKIN / Unknown 11/21/2023 3:33 AM CDT 11/25/2023 9:39 AM CDT us Edi Cervantes Jr., MD LAB - PATHOLOGY/CYTOLOG Y ORDERABLES Final Result DERMATOPATHOLOGY LABORATORY [facility] - Department of Dermatology [facility] [address] [place] [address], [address] [phone] documented in this encounter Visit Diagnoses Not on filedocumented in this encounter Care Teams Property Management Accountant Relationship Specialty Start Date End Date Daniel Glasgow MD PCP - General Internal Medicine 04/19/17 documented as of this encounter
--- NOTE | 2025-02-17 09:03 | PM.IMHP ---
H&P: HPI History of Present Illness Date/Time: 02/17/25 09:03 Chief Complaint: Here for hysterectomy Narrative: 54-year-old who has had a tubal ligation and an endometrial ablation. She has a fibroid uterus. She had a D&C with excision of a benign submucous leiomyoma in 05/2023. Benign proliferative endometrium was also noted at that time on the pathology report. She continues to have heavy menses with passage of large clots. She has had anemia requiring iron supplementation. Because conservative management has failed, she is interested in definitive surgical management of her problem. Review of Systems Review of Systems: All systems reviewed & are unremarkable except as noted in HPI and below PMFSH Past Medical History Medical History Skin cancer Anemia Fibroids Abnormal uterine bleeding Surgical History Surgical History H/O colonoscopy H/O LEEP History of endometrial ablation History of bilateral tubal ligation Hx of cholecystectomy H/O thyroidectomy Family History Family History Father COPD (chronic obstructive pulmonary disease) Mother Heart attack Breast cancer Unknown Breast cancer Social History Social History Smoking status: Never smoker Alcohol intake: current Alcohol use details: occasional Substance use: never Substance use type: does not use Living arrangements: with family Occupation/Education: occupation 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 (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 by the patient): Female Spiritual care concerns: No Meds Home Medications and Allergies Home Medications ?Medication ?Instructions ?Recorded ?Confirmed ?Type ferrous sulfate 325 mg (65 mg 325 mg PO DAILY 06/11/23 02/05/25 History iron) tablet (Iron (ferrous sulfate)) loratadine 10 mg tablet (Claritin) 10 mg PO DAILY 06/11/23 02/05/25 History ibuprofen 600 mg tablet 600 mg PO Q6H PRN pain #14 tabs 08/18/23 02/05/25 Rx Allergies Allergy/AdvReac Type Severity Reaction Status Date / Time Penicillins Allergy Intermediate RASH Verified 02/17/25 07:55 codeine AdvReac Intermediate NAUSEA Verified 02/17/25 07:55 Exam Const: Orientation/consciousness: patient oriented x3 Other: Well-developed, well-nourished female in no acute distress. Neck: Thyroid: thyroid normal Lymphatic: no lymphadenopathy noted (in neck, axilla or inguinal nodes) Resp: Effort & Inspection: normal respiratory effort Auscultation: clear to auscultation bilaterally Cardio: Rate: regular rate Rhythm: regular rhythm Heart sounds: S1 normal heart sound present and S2 normal heart sound present GI: Other: ABD: Soft, nontender, nondistended. No guarding or rebound tenderness. No hepatosplenomegaly. : General: Yes no CVA tenderness Other: External genitalia: normal female hair distribution, without lesion. Urethral meatus: no lesion, non prolapsed. Bladder: no mass, nontender Vagina: well-estrogenized, without lesion or discharge. No cystocele or rectocele. Cervix: no lesion or discharge. Uterus: small, anteverted, freely mobile, nontender Adnexa: no mass or tenderness. Anus/perineum: no lesions, nontender Back/Spine/Pelvis: Back: no CVA tenderness Skin: General skin exam: normal color and no rashes or lesions noted Neuro: General: patient oriented x3 Extrem: Other: Extremities: nontender with no edema Psych: Mental Status: mental status grossly normal Affect: normal affect Assessment and Plan Assessment and plan (1) Menometrorrhagia: Code(s): N92.1 - Excessive and frequent menstruation with irregular cycle Status: Acute Assessment and Plan: A: Menometrorrhagia in the setting of a fibroid uterus, refractory to conservative management. P: As above, we have reviewed medical as well surgical treatment options. She prefers the latter. Specifically, have offered her a robotic assisted total vaginal hysterectomy with bilateral salpingectomies. We plan to leave the ovaries in situ. She understands risks of surgery to include risks of anesthesia, risks of pain, infection, bleeding, blood products, thromboembolic phenomena and damage to adjacent structures such as bowel, bladder, ureters, blood vessels and nerves. She understands hysterectomy will render her permanently sterile. She understands all these risks and elects to proceed with surgery. (2) Fibroid uterus: Qualifiers: Uterine leiomyoma location: intramural Qualified Code(s): D25.1 - Intramural leiomyoma of uterus Code(s): D25.9 - Leiomyoma of uterus, unspecified Status: Acute
--- NOTE | 2025-02-17 11:04 | WPDANESEPPF ---
Anes - Initial Pre Proc Eval Procedure: Operation Date: 02/17/25 12:00 Proposed Procedures p Robotic Assisted Laparoscopic Total Vaginal Hysterectomy, Bilateral Salpingectomy, Possible Oophorectomy - Jake Galeana MD Date/Time: 02/17/25 11:04 Surgeon: Jake Galeana MD Pre Op Diagnosis: menometrorrhagia, fibroid uterus Patient Data Age: 54 Gender: F Height: 1.7 m Weight: 90.9 kg Allergies Allergy/AdvReac Type Severity Reaction Status Date / Time Penicillins Allergy Intermediate RASH Verified 02/17/25 07:55 codeine AdvReac Intermediate NAUSEA Verified 02/17/25 07:55 Home Medications ?Medication ?Instructions ?Recorded ?Confirmed ?Type ferrous sulfate 325 mg (65 mg 325 mg PO DAILY 06/11/23 02/05/25 History iron) tablet (Iron (ferrous sulfate)) loratadine 10 mg tablet (Claritin) 10 mg PO DAILY 06/11/23 02/05/25 History ibuprofen 600 mg tablet 600 mg PO Q6H PRN pain #14 tabs 08/18/23 02/05/25 Rx Patient hx anesthesia problems: none Family hx anesthesia problems: none Results Review: All pre-operative results and documents have been reviewed as part of the pre-operative evaluation. [facility] Past Medical History Medical History Skin cancer Anemia Fibroids Abnormal uterine bleeding Surgical History Surgical History H/O colonoscopy H/O LEEP History of endometrial ablation History of bilateral tubal ligation Hx of cholecystectomy H/O thyroidectomy Family History Family History Father COPD (chronic obstructive pulmonary disease) Mother Heart attack Breast cancer Unknown Breast cancer Social History Social History Smoking status: Never smoker Alcohol intake: current Alcohol use details: occasional Substance use: never Substance use type: does not use Living arrangements: with family Occupation/Education: occupation 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 Informed Consent: The patient's anesthetic plan and its attendant risks and benefits were discussed with the patient/family/POA. Questions were solicited and answers provided to the satisfaction of the patient/family/POA.
[2025-02-17] MEDS: ACETAMINOPHEN 500 MG TABLET 1000 MG PO ×3 (11:30→23:06)
[2025-02-17] MEDS: KETOROLAC 15 MG/ML VIAL (*BKC) IV PUSH (11:30)
[2025-02-17] MEDS: LACTATED RINGERS 1,000 ML 30 ML IV CONT ×2 (11:30→13:36)
--- NOTE | 2025-02-17 11:56 | WPDHPUPDATE1 ---
History and Physical Update Update Date/Time: 02/17/25 11:56 History and Physical has been reviewed, including an updated exam of the patient. There are NO changes in the patient's condition. Risks, benefits, and alternatives have been discussed and questions answered. Patient agrees to proceed with procedure.
[2025-02-17] MEDS: ceFAZolin 2 GM in SODIUM CHLORIDE 0.9% IV 50 ML 100 ML IVPB (11:59)
--- NOTE | 2025-02-17 13:00 | S_PTH ---
PATIENT: Mela Gomez LOC: [facility] U#:[id number] AGE/SX: 54/F ROOM: RE02/17/[address]: Jake Galeana MD : 1970 BED: DIS: 02/18/2025 SPEC #: [id number] RECD: 02/17/25 14:29 STATUS: LATANYA REQ #: [id number] ASAD: 02/17/25 13:[address]: Jake Galeana DEPT: [facility] Surgical RECD BY: Lubna Lee ENTERED: 02/17/25 14:29 SP TYPE: Surgical OTHR DR: Daniel GlasgowMD Tissues: A - Uterus Procedures: Hematoxylin and Eosin Stain Gross and Microscopic Level 5
--- NOTE | 2025-02-17 13:16 | W.PM.PROC2 ---
Procedure Note - Detailed Date of Procedure 02/17/25 Pre-op Diagnosis menometrorrhagia, fibroid uterus Post-op Diagnosis Same Procedure Performed Robotic assisted total vaginal hysterectomy with bilateral salpingectomies Surgeon Jake Galeana MD Anesthesia General Findings Enlarged, fibroid uterus. Prior tubal ligation. Otherwise, unremarkable pelvic anatomy. Normal anterior and posterior cul de sac, bilateral round and uterosacral ligaments, bilateral ovaries, and vermiform appendix. Description of Procedure The patient was taken to the operating room where general endotracheal anesthesia was administered. She was prepared and draped in the usual sterile fashion in the dorsal lithotomy position. The bladder was drained with Lim catheter. The cervix was visualized and the anterior lip was grasped using a single-tooth tenaculum. The cervix was gently dilated using Hegar dilators. The NAM 2 uterine manipulator was then placed and the tenaculum was removed. Gloves were changed and attention was turned to the abdomen. A supraumbilical skin incision was made with the scalpel. The Veress needle was advanced and pneumoperitoneum was administered using carbon dioxide gas. The bladeless trocar was then advanced. Intraperitoneal placement was confirmed using the laparoscope. Lateral ports and an physiotherapy assistant port were all placed using bladeless trocars under direct laparoscopic visualization. She was placed in Trendelenburg position and the patient cart was docked. I assumed the console. The ureters were visualized bilaterally. The round ligament on the right was divided. The Fallopian tube was dissected off the ovary, and the uteroovarian ligament was divided. The broad ligament was divided, skeletonizing the uterine artery on the right. The bladder was reflected away. The left side was similarly dissected. Colpotomy was performed circumferentially. The specimen was removed and passed off to be sent to pathology. The vaginal cuff was reapproximated using 0 Vicryl in interrupted [id number] fashion. The pelvis was irrigated copiously using warmed normal saline. Rigorous hemostasis was assured. Surgicel powder was applied to the vaginal cuff. The pedicles were inspected once again. The ports were then withdrawn and the gas was allowed to escape. The skin incisions were reapproximated using 4 0 Monocryl in interrupted subcuticular fashion. Dermaflex was applied externally. Sponge, lap, needle and instrument counts were correct. The patient was awakened and taken to the recovery room in stable condition. I was present and scrubbed through the entire procedure. Estimated Blood Loss 100 Drains Yes (Lim) Packing No Pathology Yes (Uterus, cervix, bilateral Fallopian tubes) Complications None Condition Stable Disposition PACU [facility] Billing Surgery - Charge Forward: Surgery Billing
--- NOTE | 2025-02-17 13:19 | P.DS_ITS ---
DS: Admitting Diagnosis Discharge Date 02/18/25 Admitting Diagnosis Menometrorrhagia Fibroid uterus DS: Discharge Diagnosis Discharge Diagnosis (1) Menometrorrhagia: Code(s): N92.1 - Excessive and frequent menstruation with irregular cycle Status: Acute (2) Fibroid uterus: Qualifiers: Uterine leiomyoma location: intramural Qualified Code(s): D25.1 - Intramural leiomyoma of uterus Code(s): D25.9 - Leiomyoma of uterus, unspecified Status: Acute DS: Summary Hospital Course Hospital Course: She was admitted to the hospital for scheduled surgery. Postoperatively she did well. Pain was well controlled. She voided and tolerated a regular diet. She was ambulatory. She was able to go home on POD#1. DS: Data Data Completed and Pending Pending studies at discharge: Pending at discharge 02/17/25 13:00 Surgical [PTH] Routine Discharge Plan Discharge Patient Disposition: Home Discharge Instructions: Hysterectomy Discharge Instructions (Vaginal, Laparoscopic, or Abdominal) - Okay to shower in 24 hours, avoid baths/pools for 6-8 weeks - Nothing in the vagina for 6-8 weeks (no tampons or intercourse) - Limit lifting to less than 10-15 pounds and strenuous exercise for 6-8 weeks Incision Care - If you have a dressing, remove when instructed: ?- Herrera/clear dressings should be removed by day 7 unless it get wet/starts peeling off ? - White tape/gauze dressings should be removed/exchanged daily - If no dressing: ? - Keep your incision open to air ? - Do not place any ointments/creams/solutions unless specified by your Doctor ? - It is okay to shower daily and let soap/water run over your incision, do not scrub your incision ? - Keep your incision clean and dry, okay to place gauze/paper in your skin fold to keep sweat out - Dermabond (purple skin glue) may start peeling around 10-14 days, okay to remove after 14 days - If you see a stitch (string), do not pull/tug on it, leave it alone Encouraged Activities/OTC Medications that are safe (Unless your doctor specifically told you not to take/do them, and you're not allergic) - Colace 1 capsule twice daily or Miralax daily to prevent constipation - Tylenol 1000mg every 6-8 hours as needed for pain - Ibuprofen 600mg every 6-8 hours as needed for pain - You can use heating pads or ice packs as needed if it helps with discomfort - Getting up/walking short distances multiple times daily-- we do not recommend bed rest - Stay hydrated; try to drink 64oz/ 2L daily of water, smaller meals are okay (decreased appetite is common after anesthesia) CALL YOUR DOCTOR/GO TO THE EMERGENCY ROOM IF YOU: - Are having heavy vaginal bleeding (saturating 2 Kotex pads an hour) - Cannot keep food/liquids down - Have not urinated in 6 hours or are unable to - Have not had a bowel movement in 5 days - Have a concerning rash that might be an allergic reaction - Have a fever greater than 100.4 degrees Fahrenheit - Significant pain not relieved with your prescribed medications +/- OTC meds - Significant redness, drainage, or bleeding from your incision - If you had a hysterectomy and are having abnormal vaginal discharge and/or vaginal bleeding Nothing in the vagina for 6 weeks. Call or return if temperature above 100.4? F, increased abdominal pain, increased vaginal bleeding or any new problems. Patient Language: Guatem[place] Stand Alone Forms: General Discharge Instructions Follow-up/Referrals: Jake Galeana MD [Physician, AGILE DEVELOPER] - 2 Weeks Discharge Orders: Discharge Order (Routine); Ordered 02/18/25 Ordered By: Jake Galeana Discharge Medications: New oxycodone-acetaminophen [Endocet] 5-325 mg tablet 1 - 2 tablet PO Q6H PRN (Reason: pain) Qty: 30 0RF Continued ferrous sulfate [Iron (ferrous sulfate)] 325 mg (65 mg iron) Tablet 325 mg PO DAILY Patient Comments: says takes 1 tab bid. loratadine [Claritin] 10 mg Tablet 10 mg PO DAILY ibuprofen 600 mg tablet 600 mg PO Q6H PRN (Reason: pain) Qty: 14 0RF
[2025-02-17] MEDS: fentaNYL CITRATE INJ (*CRX) 100 MCG/2 ML VIAL 25 MCG IV PUSH ×5 (13:36→14:41)
--- NOTE | 2025-02-17 14:57 | ADMGEN ---
This patient, Mela Gomez, was admitted to [facility] 2nd Floor Room 289-00. Patient/family oriented to hospital policies and general routines including ID bracelet, bed and alarms, visiting hours, pain management, procedures, bathroom and other care routines, personal items, smoking policy, room service/diet, and visiting hours. Information on how to activate the Rapid Response Team has been discussed. Patient/Family are encouraged to report perceived risks to care and to ask questions if they do not understand what they are told or what they should do.
[2025-02-17] MEDS: MORPHINE SULFATE (*CRX) 4 MG/ML INJ IV PUSH (15:10)
[2025-02-17] MEDS: DEXTROSE 5%/0.45% SOD CHL 1,000 ML 125 ML IV CONT (15:10)
[2025-02-17] MEDS: KETOROLAC 30 MG/ML VIAL (*BKC) IV PUSH ×2 (17:13→23:06)
[2025-02-17] MEDS: DOCUSATE SODIUM 100 MG CAPSULE PO (17:14)
[2025-02-17] MEDS: SIMETHICONE 80 MG TAB.CHEW PO (17:14)
[2025-02-17] MEDS: ONDANSETRON INJ 4 MG/2 ML VIAL IV PUSH (18:00)
[2025-02-17] MEDS: ENOXAPARIN 40 MG/0.4 ML SYRINGE SUB-Q (20:30)
[2025-02-18 03:41] VITALS: BP 111/60; PULSE 85; RESP 16; TEMP 36.7; O2SAT 99
[2025-02-18] MEDS: KETOROLAC 30 MG/ML VIAL (*BKC) IV PUSH (05:15)
[2025-02-18] MEDS: ACETAMINOPHEN 500 MG TABLET 1000 MG PO ×2 (05:15→10:40)
[2025-02-18 06:32] LABS: Hematocrit 24.5 % (37.0-47.0); Immature Granulocyte Percent A 0.3 % (0-0.5); Lymphocytes Absolute Auto 1.06 K/mm3 (0.9-3.2); Mean Corpuscular HGB Conc 27.8 g/dl (32-36); Mean Corpuscular Hemoglobin 20.4 pg (26-34); Mean Corpuscular Volume 73.6 fl (80-100); Nucleated Red Blood Cells Absolute Auto 0.000 K/mm3 (0.0-0.012); Nucleated Red Blood Cells Perc 0.0 % (0.0-0.2); Platelet Count Result 282 k/mm3 (150-375); Red Blood Count 3.33 M/mm3 (4.2-5.4); White Blood Count 5.9 K/mm3 (4.5-10.0)
[2025-02-18 07:06] LABS: Hemoglobin 6.8 g/dL (12.0-15.0)
[2025-02-18 07:07] LABS: Hypochromasia 1+; Microcytosis 1+ (NORMAL); Schistocytes None Seen
[2025-02-18] MEDS: SIMETHICONE 80 MG TAB.CHEW PO (07:20)
[2025-02-18 07:30] VITALS: BP 104/54; PULSE 92; RESP 16; TEMP 37.4; O2SAT 97
[2025-02-18] MEDS: DOCUSATE SODIUM 100 MG CAPSULE PO (08:17)
[2025-02-18] MEDS: IRON SUCROSE COMPLEX 300 MG in SODIUM CHLORIDE 0.9% IV 250 ML 176.67 MG IVPB (08:18)
[2025-02-18] MEDS: IBUPROFEN 600 MG TABLET PO (10:40)
[2025-02-18 10:50] VITALS: BP 128/75; PULSE 90; RESP 18
--- NOTE | 2025-02-18 13:33 | P.PNAN_ITS ---
Anes - Prog Note Post-Op Date/Time: 02/18/25 13:33 Cardiovascular status: normal Respiratory status: normal Airway patency: baseline Mental status: baseline Post-Op hydration status: normal Vital Signs: Last Vital Signs Temp 37.4 C 02/18/25 07:30 Pulse 90 02/18/25 10:50 Resp 18 02/18/25 10:50 BP 128/75 02/18/25 10:50 Pulse Ox 97 02/18/25 07:30 O2 Del Method Room Air 02/17/25 20:28 O2 Flow Rate 8 02/17/25 13:40 Pain Score (VAS): 0 I/O: Intake & Output 02/17/25 02/18/25 02/18/25 23:59 07:59 15:59 Intake Total 1480 240 265 Output Total 900 600 Balance 580 -360 265 Laboratory Tests 02/18/25 05:22 02/18/25 05:22 WBC 5.9 RBC 3.33 L Hgb 6.8 L* Hct 24.5 L MCV 73.6 L MCH 20.4 L MCHC 27.8 L RDW 16.5 H Plt Count 282 MPV 9.9 Immature Gran % (Auto) 0.3 Neut % (Auto) 73.9 H Lymph % (Auto) 18.0 L [place] % (Auto) 5.1 Eos % (Auto) 2.5 Baso % (Auto) 0.2 Lymph # (Auto) 1.06 [place] # (Auto) 0.3 Eos # (Auto) 0.2 Baso # (Auto) 0.0 Abs Immat Gran (auto) 0.02 Absolute Neuts (auto) 4.4 Absolute Nucleated RBC 0.000 Band Neutrophils % Not Reportable Nucleated RBC % 0.0 Platelet Estimate Adequate Hypochromasia 1+ Microcytosis 1+ Schistocytes None seen Post-procedural complaints: none Patient Feedback: Patient satisfied with anesthetic care.
--- NOTE | 2025-02-18 14:02 | P.PNOB_ITS ---
INFORMATICS APPLICATION ANALYST - A/P Assessment and plan (1) Menometrorrhagia: Code(s): N92.1 - Excessive and frequent menstruation with irregular cycle Status: Acute Assessment and Plan: A: Symptomatic fibroid uterus, now s/p robotic assisted TVHBS. Doing well. P: Reviewed the intraoperative and postoperative course. We reviewed instructions and precautions. She will follow up in 2 weeks. (2) Fibroid uterus: Qualifiers: Uterine leiomyoma location: intramural Qualified Code(s): D25.1 - Intramural leiomyoma of uterus Code(s): D25.9 - Leiomyoma of uterus, unspecified Status: Acute Postoperative Procedures: Procedures Operation Date: 02/17/25 12:00 Actual Procedure Side Surgeon p Robotic Assisted Laparoscopic Total Vaginal Hysterectomy, Bilateral Salpingectomy, Bilateral Jake Anamika Galeana MD Time Spent With Patient Time: Total time spent is greater than 50% in coordination of care (as documented) at patient's floor/unit and/or counseling patient: Time with patient: less than 15 minutes INFORMATICS APPLICATION ANALYST- PN:Subj Post-Op Subjective Date/time seen: 02/18/25 14:02 Interval history: Pain OK. Tolerating diet. Voiding. Would like to go home. Exam 2 Narrative: AVSS I/O OK ABD soft, nontender. Incisions c/d/i. EXT nontender INFORMATICS APPLICATION ANALYST - PN: Obj Data Vital Signs Vital Signs: Vital Signs - 24 hr 02/17/25 14:10 02/17/25 14:25 02/17/25 14:40 Temperature Pulse Rate 82 75 73 Respiratory Rate 12 12 12 Blood Pressure 125/78 122/73 107/58 L Pulse Oximetry 100 100 100 Oxygen Delivery Room Air Room Air Room Air 02/17/25 15:05 02/17/25 20:28 02/17/25 20:28 Temperature 97.9 F 97.9 F Pulse Rate 72 80 Respiratory Rate 16 16 Blood Pressure 113/63 128/74 Pulse Oximetry 100 100 Oxygen Delivery Room Air 02/17/25 23:06 02/18/25 03:41 02/18/25 07:30 Temperature 97.7 F 98.1 F 99.3 F Pulse Rate 92 85 92 Respiratory Rate 18 16 16 Blood Pressure 136/68 111/60 104/54 L Pulse Oximetry 100 99 97 Oxygen Delivery 02/18/25 10:50 Temperature Pulse Rate 90 Respiratory Rate 18 Blood Pressure 128/75 Pulse Oximetry Oxygen Delivery Intake/Output Intake/Output: Intake & Output 02/15/25 02/16/25 02/17/25 02/18/25 23:59 23:59 23:59 23:59 Intake Total 1830 505 Output Total 1175 600 Balance 655 -95 Meds/Results Medications: Active Medications Generic Name Dose Route Start Last Admin Trade Name Freq PRN Reason Stop Dose Admin Acetaminophen 1,000 mg 02/17/25 18:00 02/18/25 10:40 Acetaminophen 500 Mg Tablet PO 1,000 mg Q6HR JOHN Administration Docusate Sodium 100 mg 02/17/25 17:00 02/18/25 08:17 Docusate Sodium 100 Mg Capsule PO 100 mg BID JOHN Administration Enoxaparin Sodium 40 mg 02/17/25 20:00 02/17/25 20:30 Enoxaparin 40 Mg/0.4 Ml Syringe SUB-Q 40 mg Q24H JOHN Administration Dextrose/Sodium Chloride 1,000 mls @ 125 mls/hr 02/17/25 14:50 02/18/25 09:35 Dextrose 5% Sodium Chloride 0.45% IV CONT Not Given .Q8H JOHN Ibuprofen 600 mg 02/18/25 12:00 02/18/25 10:40 Ibuprofen 600 Mg Tablet PO 600 mg Q6HR JOHN Administration Morphine Sulfate 4 mg 02/17/25 14:50 02/17/25 15:10 Morphine Sulfate (*Crx) 4 Mg/Ml Inj IV PUSH 4 mg Q4H PRN Administration Breakthrough Pain Rated 7-10 or NPO Naloxone HCl 0.1 mg 02/17/25 14:50 Naloxone Hcl 0.4 Mg/Ml Vial IV PUSH Q2M PRN Respiratory rate less than 10 Ondansetron HCl 4 mg 02/17/25 14:50 02/17/25 18:00 Ondansetron Inj 4 Mg/2 Ml Vial IV PUSH 4 mg Q6H PRN Administration Nausea And Vomiting Oxycodone HCl 5 mg 02/17/25 14:50 Oxycodone Hcl (*Crx) 5 Mg Tab Ir PO Q4H PRN Pain Rated 4-6 Oxycodone HCl 10 mg 02/17/25 14:50 Oxycodone Hcl (*Crx) 5 Mg Tab Ir PO Q6H PRN Pain Rated 7-10 Simethicone 80 mg 02/17/25 17:00 02/18/25 07:20 Simethicone 80 Mg Tab.Chew PO 80 mg TIDWM JOHN Administration Labs 02/18/25 05:22 Labs: Laboratory Results - last 24 hr 02/18/25 05:22 WBC 5.9 RBC 3.33 L Hgb 6.8 L* Hct 24.5 L MCV 73.6 L MCH 20.4 L MCHC 27.8 L RDW 16.5 H Plt Count 282 MPV 9.9 Immature Gran % (Auto) 0.3 Neut % (Auto) 73.9 H Lymph % (Auto) 18.0 L [place] % (Auto) 5.1 Eos % (Auto) 2.5 Baso % (Auto) 0.2 Lymph # (Auto) 1.06 [place] # (Auto) 0.3 Eos # (Auto) 0.2 Baso # (Auto) 0.0 Abs Immat Gran (auto) 0.02 Absolute Neuts (auto) 4.4 Absolute Nucleated RBC 0.000 Band Neutrophils % Not Reportable Nucleated RBC % 0.0 Platelet Estimate Adequate Hypochromasia 1+ Microcytosis 1+ Schistocytes None seen
== END 2025-02-18 14:45 | disposition home or self-care (01) ==
LOC: ANHSURGERY 13:21 → ANHOB2 02-18 14:02
PROVIDERS: PCP Internal Medicine; Visit Provider Obstetrics & Gynecology
PROC: (CPT 58552; principal; 2025-02-17 12:00)
DX: N80.03 Adenomyosis of the uterus (principal); N83.8 Other noninflammatory disorders of ovary, fallopian tube and broad ligament; N88.8 Other specified noninflammatory disorders of cervix uteri; N87.9 Dysplasia of cervix uteri, unspecified; G89.18 Other acute postprocedural pain; D64.9 Anemia, unspecified; E66.9 Obesity, unspecified; Z68.33 Body mass index [BMI] 33.0-33.9, adult; Z79.1 Long term (current) use of non-steroidal anti-inflammatories (NSAID); Z98.890 Other specified postprocedural states; Z90.49 Acquired absence of other specified parts of digestive tract; Z98.51 Tubal ligation status; Z98.891 History of uterine scar from previous surgery; Z85.828 Personal history of other malignant neoplasm of skin; Z80.3 Family history of malignant neoplasm of breast; Z82.49 Family history of ischemic heart disease and other diseases of the circulatory system
CPT/HCPCS: 58552; S2900; 36415; 85025; 88307; 99199; J0690; A9270; J1100; J1171; J1650; J1756; J1885; J2250; J2270; J2405; J2704; J3010; J7030; J7050; J7120